=== PATIENT | female | born 1965 ===

== ENCOUNTER 2021-06-04 10:59 | Outpatient (REF) | payer OTHER, SELFPAY ==
--- NOTE | ~2021-06-04 | XR_ITS ---
EXAMINATION: XR CHEST CLINICAL INFORMATION: Malignant neoplasm lower outer quadrant right breast. COMPARISON: None TECHNIQUE: Two views of the chest were obtained. FINDINGS: There is no evidence of acute parenchymal disease, pneumothorax, or pleural effusion. Hazy density is seen overlying the right breast which may be related to unilateral implant. There is some opacity seen overlying the right apex but which may be related to the 1st rib. XR/XR chest 2V IMPRESSION: No acute disease.
[2021-06-04 12:06] LABS: MANUAL DIFF FLAG NO
[2021-06-04 12:14] LABS: Basophils Percent Auto 0.4 % (0-2); Eosinophils Absolute Auto 0.3 X10*3/uL (0.0-0.4); Eosinophils Percent Auto 6.6 % (0-4); Hematocrit 35.3 % (37-47); Hemoglobin 11.4 g/dl (12.0-16.0); Imm Gran Abs Auto 0.01 X10*3/uL (0.00-0.03); Imm Gran Pct Auto 0.2 % (0.0-0.4); Lymphocytes Absolute Auto 2.2 X10*3/uL (1.2-4.9); Lymphocytes Percent Auto 42.2 % (20-40); Mean Corpuscular HGB Conc 32.3 g/dl (31.0-35.0); Mean Corpuscular Volume 89.8 fL (80-98); Mean Platelet Volume 10.9 fL (9.4-12.3); Monocytes Absolute Auto 0.4 X10*3/uL (0.1-1.2); Monocytes Percent Auto 8.4 % (2-11); Neutrophils Absolute Auto 2.2 X10*3/uL (2.0-8.3); Neutrophils Percent Auto 42.2 % (45-73); Platelet Count 232 X10*3/uL (160-400); Red Blood Count 3.93 X10*6/uL (4.20-5.50); Red Cell Distribution Width 13.6 % (11.0-16.0); White Blood Count 5.1 X10*3/uL (4.8-10.8)
[2021-06-04 15:56] LABS: Alanine Aminotransferase 17 U/L (0-31); Albumin Level 3.7 g/dL (3.5-5.0); Alkaline Phosphatase 59 U/L (39-117); Anion Gap 15 (12-20); Aspartate Amino Transferase 30 U/L (5-31); Bilirubin Total 0.7 mg/dL (0.0-1.0); Blood Urea Nitrogen 9 mg/dL (9-16); Calcium 9.1 mg/dL (8.4-10.2); Carbon Dioxide 24 mmol/L (22-29); Chloride 108 mmol/L (96-108); Estimated Glomerular Filt Rate > 60; Glucose Random 82 mg/dL (60-115); Potassium 4.5 mmol/L (3.3-5.1); Sodium 142 mmol/L (135-145); Total Protein 6.6 g/dL (6.5-8.0)
[2021-06-04 16:19] LABS: Vitamin D 25-OH Total 18.9 ng/mL (>30)
== END 2021-06-04 11:00 | disposition home or self-care (01) ==
LOC: HO.LAB 10:59
PROVIDERS: PCP Internal Medicine; Visit Provider Internal Medicine
DX: C50.511 Malignant neoplasm of lower-outer quadrant of right female breast (principal); E55.9 Vitamin D deficiency, unspecified
CPT/HCPCS: 36415; 71046; 80053; 82306; 85025

== ENCOUNTER 2022-03-04 09:19 | Day surgery (SDC) | payer OTHER, SELFPAY ==
[2022-02-27 09:59] VITALS: BMI 24.4
--- NOTE | 2022-03-03 09:03 | HO.ANESPROP2 ---
Documented by User: Radha Galvan NP 03/03/22 09:03 HPI - Anesthesia Eval Consult details Narrative: 56yo F for Colonoscopy [facility] Surgical History Surgical History Hx of mastectomy Social History Social History Patient Tobacco Use Status: Never used Tobacco Use of substances other than those prescribed or required for medical reasons: No Are you DNR?: No Advance Directives: No Advance Directives Information Provided: Yes Meds Allergies Allergy/AdvReac Type Severity Reaction Status Date / Time No Known Allergies Allergy Verified 03/04/22 09:57 Home Medications Medication Instructions Recorded Confirmed Last Taken Type cholecalciferol (vitamin D3) 50 1 cap PO DAILY 03/04/22 03/04/22 Unknown History mcg (2,000 unit) capsule tamoxifen 20 mg tablet 1 tab PO DAILY 03/04/22 03/04/22 Unknown History Exam Exam Date and Time: March 03, 2022 09 Height,Weight and Vital Signs: Height 5 ft Weight 56.699 kg Assessment and Plan Assessment Anesthesia Assessment: Chart Reviewed Documented by User: Jemma Figueroa MD 03/04/22 10:54 [facility] Surgical History Surgical History Hx of mastectomy History of Problems with Anesthesia: No Social History Social History Patient Tobacco Use Status: Never used Tobacco Use of substances other than those prescribed or required for medical reasons: No Are you DNR?: No Advance Directives: No Advance Directives Information Provided: Yes Meds Allergies Allergy/AdvReac Type Severity Reaction Status Date / Time No Known Allergies Allergy Verified 03/04/22 09:57 Home Medications Medication Instructions Recorded Confirmed Last Taken Type cholecalciferol (vitamin D3) 50 1 cap PO DAILY 03/04/22 03/04/22 Unknown History mcg (2,000 unit) capsule tamoxifen 20 mg tablet 1 tab PO DAILY 03/04/22 03/04/22 Unknown History Exam Airway Mallampati Class: I TM Dist: >3cm Neck ROM: Full Loose/Missing/Broken Teeth: No Heart: RRR Lungs: CTA Assessment and Plan Assessment Anesthesia Assessment: Anesthesia Plan Discussed Final Anesthetic Review History of Problems with Anesthesia: No NPO: Yes ASA Class: II Final Preanesthetic Review: Meds/Allgs Chart Reviewed, Consent Obtained/Reviewed and Anes Risks/Benef Reviewed Patient Risk: Low Procedure Risk: Low Anesthetic Plan Anesthetic Plan: MAC:
[2022-03-04 10:00] VITALS: BP 108/59; PULSE 62; RESP 16; TEMP 36.3; O2SAT 100; BMI 23.4
[2022-03-04] MEDS: Lactated Ringers 1,000 ML 100 ML IVCONT (10:08)
[2022-03-04 11:54] VITALS: BP 91/43; PULSE 74; RESP 16; TEMP 36.3; O2SAT 98
--- NOTE | 2022-03-04 11:58 | PM.OP ---
Brief Operative Note Date of Service: 03/04/22 Pre-op diagnosis: Screening Post-op diagnosis: other (Polyp) Procedure: Colonoscopy to the cecum and TI with bx/removal of polyp Surgeon: Gerardo Chisholm Anesthesia: MAC Was an Coding Clerks Supervisor used for this Procedure?: No Estimated blood loss (mL): 2.0 Pathology: other (A. Ascending colon polyp) Condition: stable Disposition: PACU
[2022-03-04 12:09] VITALS: BP 103/56; PULSE 67; RESP 16; O2SAT 100
[2022-03-04 12:24] VITALS: BP 106/58; PULSE 61; RESP 16; TEMP 36.4; O2SAT 98
--- NOTE | 2022-03-04 12:50 | OP_ITS ---
SURGEON: Gerardo Chisholm MD INDICATIONS: The patient presents for evaluation of colorectal cancer screening. Full consent has been obtained from her for this, including risks of bleeding and perforation. PREOPERATIVE DIAGNOSIS: Colorectal cancer screening. POSTOPERATIVE DIAGNOSIS: Colorectal cancer screening, small colon polyp, mild diverticulosis, and small internal hemorrhoids. PROCEDURE PERFORMED: Colonoscopy to cecum and terminal ileum with biopsy and removal of polyp. ESTIMATED BLOOD LOSS: COMPLICATIONS: ANESTHESIA: Medication used, monitored anesthesia care. ASSISTANTS: SPECIMENS: DESCRIPTION OF PROCEDURE: The patient was placed in the left lateral decubitus position the digital rectal exam revealed no abnormalities the Olympus video pediatric colonoscope was entered into the rectum and advanced easily to the cecum. Once in the cecum, I did identify normal-appearing cecal pouch with appendiceal orifice and a normal-appearing ileocecal valve. The terminal ileum was cannulated and appeared normal. The scope was withdrawn back in the colon. The entire cecum and ileocecal valve appeared normal. The scope was then slowly withdrawn assessing all mucosal surfaces carefully. Preparation was excellent. In the proximal ascending colon was a flat approximately 3 or 4 mm polyp, which was biopsied and completely removed with the cold biopsy forceps. I did not visualize any other polyps, colitis, nor angiodysplasia. There was a mild amount of sigmoid diverticulosis. In the rectum, the scope was retroflexed visualizing some small internal hemorrhoids, but no other pathology. The rectal mucosa appeared normal. The scope was straightened and withdrawn from the patient. She tolerated the procedure well and was returned to the recovery area in stable condition. IMPRESSION: 1. Small colon polyp, status post biopsy removal. 2. Mild sigmoid diverticulosis. 3. Small internal hemorrhoids. PLAN: The results of the biopsy will be checked. If this happens to be a tubular adenoma, I would recommend a followup coloscopy in 5 years. If it is only hyperplastic, I would recommend a followup colonoscopy in 10 years. She will otherwise see me on a p.r.n. basis. MD CON Bhandari/PANDA / [phone]
== END 2022-03-04 12:44 | disposition home or self-care (01) ==
PROVIDERS: PCP Internal Medicine; Visit Provider Internal Medicine
PROC: 0DJD8ZZ Inspection of Lower Intestinal Tract, Via Natural or Artificial Opening Endoscopic (ICD-10-PCS; CPT 45378; principal; 2022-03-04 10:30)
DX: Z12.11 Encounter for screening for malignant neoplasm of colon (principal); D12.2 Benign neoplasm of ascending colon; K57.30 Diverticulosis of large intestine without perforation or abscess without bleeding; K64.8 Other hemorrhoids; C50.919 Malignant neoplasm of unspecified site of unspecified female breast; Z90.10 Acquired absence of unspecified breast and nipple; Z79.810 Long term (current) use of selective estrogen receptor modulators (SERMs)
CPT/HCPCS: 45380; 88305

== ENCOUNTER → 2023-04-12 13:25 | Outpatient (BNVA) | payer OTHER, SELFPAY | PROVIDERS: PCP Internal Medicine; Visit Provider Hospitalist ==

== ENCOUNTER 2023-08-16 08:30 | Outpatient (REF) | payer OTHER, SELFPAY ==
--- NOTE | ~2023-08-16 | XR_ITS ---
EXAMINATION: XR CHEST CLINICAL INFORMATION: Abnormal findings on diagnostic imaging COMPARISON: 06/04/2021 TECHNIQUE: 2 views of the chest were obtained. FINDINGS: The lungs are well-inflated. Heart size is normal. This asymmetric right apical pleural thickening and associated opacity. Redemonstration of hazy opacity overlying right breast with asymmetrically smaller right breast shadow, again possibly related to unilateral implant. No pleural effusion. Hazy opacity along the central medial left lung base, possibly representing pneumonia. XR/XR chest 2V IMPRESSION: Hazy opacity along the central medial left lung base, possibly representing pneumonia. Recommend follow-up imaging in 4-6 weeks to confirm resolution and exclude underlying pathology.
[2023-08-16 09:45] LABS: MANUAL DIFF FLAG NO
[2023-08-16 10:04] LABS: Basophils Percent Auto 0.7 % (0-2); Eosinophils Absolute Auto 0.7 X10*3/uL (0.0-0.4); Eosinophils Percent Auto 12.6 % (0-4); Hematocrit 39.9 % (37.0-47.0); Hemoglobin 13.3 g/dl (12.0-16.0); Imm Gran Abs Auto 0.01 X10*3/uL (0.00-0.03); Imm Gran Pct Auto 0.2 % (0.0-0.4); Lymphocytes Absolute Auto 2.3 X10*3/uL (1.2-4.9); Lymphocytes Percent Auto 42.1 % (20-40); Mean Corpuscular HGB Conc 33.3 g/dl (31.0-35.0); Mean Corpuscular Hemoglobin 29.8 pg (27.0-33.0); Mean Corpuscular Volume 89.5 fL (80.0-98.0); Mean Platelet Volume 10.5 fL (9.4-12.3); Monocytes Absolute Auto 0.3 X10*3/uL (0.1-1.2); Monocytes Percent Auto 5.8 % (2-11); Neutrophils Absolute Auto 2.1 x10*3/uL (2.0-8.3); Neutrophils Percent Auto 38.6 % (45-73); Platelet Count 260 X10*3/uL (160-400); Red Blood Count 4.46 X10*6/uL (4.20-5.50); Red Cell Distribution Width 13.3 % (11.0-16.0); White Blood Count 5.5 X10*3/uL (4.8-10.8)
[2023-08-16 10:39] LABS: Erythrocyte Sedimentation Rate 25 MM/HR (0-20)
[2023-08-18 04:38] LABS: Immunoglobulin E 243 kU/L (<OR=114)
== END 2023-08-16 08:31 | disposition home or self-care (01) ==
LOC: HO.LAB 08:30
PROVIDERS: PCP Internal Medicine; Visit Provider Hospitalist
DX: R93.89 Abnormal findings on diagnostic imaging of other specified body structures (principal); J44.9 Chronic obstructive pulmonary disease, unspecified; T78.40XA Allergy, unspecified, initial encounter; J45.41 Moderate persistent asthma with (acute) exacerbation
CPT/HCPCS: 36415; 71046; 82785; 85025; 85652; 86003; 94640

== ENCOUNTER 2023-08-16 08:30 | Outpatient (AMB) | payer OTHER, SELFPAY ==
[2023-08-16 08:35] VITALS: BP 128/60; PULSE 60; O2SAT 98; BMI 25.4
--- NOTE | 2023-08-16 08:35 | A.OFFVIS_ITS ---
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 The patient states that she was in her usual state health until early November when she developed COVID-19. She was not very sick from COVID-19 althou she developed a worsening cough. Hiking in nature. Nonproductive. Typically worse at nighttime. Fax it her sleep and also affect her who is I am affected by the constant coughing. Subsequently she recovers from the COVID but then still continue with cough. Moderate severity. She denies any significant reflux disease. She denies any significant nasal congestion. She does have underlying allergies. There is up also positive family history of significant allergies in the family. She had gotten blood work demonstrating significant eosinophilia in the past. In addition to this the patient did have a chest x-ray sometime in 2020 demonstrating postoperative changes with the right sided breast prosthesis in addition to a hazy opacity in the upper lung area on the right side. She has not had any x-rays since then. Therefore, because of the abnormal blood work will going to go ahead and request additional blood work and also request a repeat chest x-ray to follow up those findings specially with chronic cough. It is likely that she has a cough variant asthma and also I upper airway cough syndrome. I did provide with peak flow ended instructed how to use it to see if she can use the peak flow as a way to monitor her airway resistance and see if she gets any benefit from a rescue inhaler. 08/16/2023 the patient is here for a pulm onary follow-up visit. The patient had presented back in March with symptoms of cough. At that point she was started on inhaler therapy. She has significant asthma history significant wheezing. The patient may be a great candidate for biologics. However she has not had her blood work done as of yet. Now her symptoms have been getting worse. She is having increased cough she has chest tightness and wheezing. Moderate severity. She could not go to work because her symptoms were so significant and this is something that she does not do typically. The patient denies any fevers or chills and denies any sick contacts. We did review her last chest x-ray that she had back in demonstrating some slight opacity. Will have a repeat that x-ray and also the blood work to assess her eosinophilia. The patient will be maximize her respiratory therapy. She does have significant wheezing therefore will give a nebulizer treatment right now as well. 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 But my suspicion is most likely allergic with the change in seasons. If the patient continues to be symptomatic will consider starting biologic therapy. [facility] Medical History (Updated 08/16/23 @ 20:43 by Naren Quiñones MD) Allergies Asthma Chronic cough Surgical History Hx of mastectomy Social History Patient Tobacco Use Status: Never used Tobacco Review of Systems Const Denies fever(s) Eyes Denies blurry vision ENT Denies nasal congestion Card Denies chest pain Resp Reports chest congestion, Reports cough, Denies hemoptysis and Reports wheezing GI Reports dyspepsia Musc Reports no additional complaints Skin/Breast Denies rash Neuro Reports no additional complaints Steve/Lymph Denies lymphadenopathy Aller/Immun Reports wheezing Physical Exam Vital Signs: Last Vital Signs Pulse 60 08/16/23 08:35 BP 128/60 08/16/23 08:35 Pulse Ox 98 08/16/23 08:35 Oxygen Delivery Method Room Air 08/16/23 08:35 BMI result Body Mass Index 25.4 Const General: comfortable HEENT Head: Yes normocephalic Neck Neck: Yes supple Chest Chest palpation & inspection: normal inspection of the chest Resp Effort & Inspection: normal respiratory effort, Actively coughing Quality: actively coughing and prolonged expiratory phase Auscultation: wheezes and diminished lung sounds Cardio Rate: regular rate Rhythm: regular rhythm Heart sounds: S1 normal heart sound present and S2 normal heart sound present GI Palpation (GI): Soft to palpation Skin General skin exam: no rashes or lesions noted Extrem General: Yes no clubbing, cyanosis or edema Office Procedures Nebulizer Treatment Nebulizer Treatment 39921-Eizvewxey/MDI RX initial, or Nebulizer Subsequent Treatment Office Meds ipratropium 0.5 mg-albuterol 3 mg (2.5 mg base)/3 mL nebulization soln Performing Provider: Naren Quiñones MD Performing Location: [facility] Administered by: Sophie Lua LPN on 08/16/23 08:50 Dose Route Admin Location Dispensed Lot Number Expiration Date [facility] [employer]ologist 3 mL inhalation 3 mL [id number] 11/28/24 0325-6580-91 [facility] Assessment & Plan Assessment & Plan (1) Chronic cough: Code(s): R05.3 - Chronic cough (2) Asthma: Comment: Eosinophilic asthma Code(s): J45.909 - Unspecified asthma, uncomplicated Qualifiers: Asthma complication type: with acute exacerbation Asthma persistence: persistent Asthma severity: moderate Qualified Code(s): J45.41 - Moderate persistent asthma with (acute) exacerbation (3) Allergies: Code(s): T78.40XA - Allergy, unspecified, initial encounter Qualifiers: Encounter type: initial encounter Qualified Code(s): T78.40XA - Allergy, unspecified, initial encounter Plan start Symbicort start Prednisone taper start doxycycline Needs to have bloodwork/allergy testing needs to have her CXR TANESHA as needed Tessalon pearls as needed Assess for Biologic therapy F/U 6-8 weeks Orders: Orders AMB Nebulizer Treatment Today J45.909 - Unspecified asthma, uncomplicated Medications: New prednisone PO daily; Take 2 tabs daily x 5 days, then 1 tablet daily x 5 days 10 days 15 tabs 0RF doxycycline hyclate 100 mg PO BID 10 days 20 caps 0RF budesonide-formoterol 160-4.5 mcg/actuation (Symbicort) 2 puffs inhalation BID 30 days 10.2 grams 11RF J44.9 - Chronic obstructive pulmonary disease, unspecified Coding Level of Care Code Est Pt Level 4 (00232) Diagnoses Chronic cough R05.3 Moderate persistent asthma with acute exacerbation J45.41 Asthma complication type: with acute exacerbation Asthma persistence: persistent Asthma severity: moderate Allergy, initial encounter T78.40XA Encounter type: initial encounter CPT Codes Nebulizer Treatment - Nebulizer Treatment, initial or subsequent: 70645- Nebulizer/MDI RX initial, or Nebulizer Subsequent Treatment ([id number]) Time Spent (min) 18
== END 2023-08-16 09:10 | disposition home or self-care (01) ==
PROVIDERS: PCP Internal Medicine; Visit Provider Hospitalist
DX: J45.909 Unspecified asthma, uncomplicated (principal)
CPT/HCPCS: 99214

== ENCOUNTER 2023-09-27 08:48 | Outpatient (AMB) | payer OTHER, SELFPAY ==
[2023-09-27 08:51] VITALS: BP 102/62; PULSE 70; O2SAT 98; BMI 25.8
--- NOTE | 2023-09-27 08:51 | MHC.OFFVIS ---
Intake Vital Signs 09/27/23 08:51 Height 5 ft Weight 132 lb 4.438 oz BMI 25.8 BP 102/62 Blood Pressure Location Rt brachial Position Sitting Pulse 70 Pulse Source Doppler Pulse Oximetry (%) 98 Oxygen Delivery Method Room Air Intake Visit Reasons: Pneumonia Allergies No Known Allergies Allergy (Verified 09/27/23 08:56) HPI HPI Comments History of Present Illness Details The patient is a 58 year woman with a history of breast cancer more than 10 years ago presenting with a chronic cough. The patient states that she was in her usual state health until early November when she developed COVID-19. She was not very sick from COVID-19 althou she developed a worsening cough. Hiking in nature. Nonproductive. Typically worse at nighttime. Fax it her sleep and also affect her who is I am affected by the constant coughing. Subsequently she recovers from the COVID but then still continue with cough. Moderate severity. She denies any significant reflux disease. She denies any significant nasal congestion. She does have underlying allergies. There is up also positive family history of significant allergies in the family. She had gotten blood work demonstrating significant eosinophilia in the past. In addition to this the patient did have a chest x-ray sometime in 2020 demonstrating postoperative changes with the right sided breast prosthesis in addition to a hazy opacity in the upper lung area on the right side. She has not had any x-rays since then. Therefore, because of the abnormal blood work will going to go ahead and request additional blood work and also request a repeat chest x-ray to follow up those findings specially with chronic cough. It is likely that she has a cough variant asthma and also I upper airway cough syndrome. I did provide with peak flow ended instructed how to use it to see if she can use the peak flow as a way to monitor her airway resistance and see if she gets any benefit from a rescue inhaler. 08/16/2023 the patient is here for a pulmonary follow-up visit. The patient had presented back in March with symptoms of cough. At that point she was started on inhaler therapy. She has significant asthma history significant wheezing. The patient may be a great candidate for biologics. However she has not had her blood work done as of yet. Now her symptoms have been getting worse. She is having increased cough she has chest tightness and wheezing. Moderate severity. She could not go to work because her symptoms were so significant and this is something that she does not do typically. The patient denies any fevers or chills and denies any sick contacts. We did review her last chest x-ray that she had back in demonstrating some slight opacity. Will have a repeat that x-ray and also the blood work to assess her eosinophilia. The patient will be maximize her respiratory therapy. She does have significant wheezing therefore will give a nebulizer treatment right now as well. She will get the blood work in the x-ray and then will picker / packer some prednisone and will start a course of antibiotics she has seen cases infectious process. But my suspicion is most likely allergic with the change in seasons. If the patient continues to be symptomatic will consider starting biologic therapy. 09/27/2023 the patient is here for a pulmonary follow-up visit. The patient is feeling a lot better. She is having no symptoms at this time. She did take the prednisone for few days and also started the Symbicort. She was able to wean off. Now she can uses Symbicort as needed. We did review her chest x-ray demonstrates some hazy opacities suggesting some degree of pneumonitis. Although when I looked at it was not very impressed. In addition to that the patient did have blood work including allergy testing demonstrating significant allergies to mold. The patient does have a exposure to mold in the basement and also potentially in work. Areas. The patient will try to minimize exposure. They are running at the humidifier which would be helpful as well. The patient is a candidate for biologic therapies including the eosinophil count and IgE levels in her allergies. Although at this point she is doing better trying to avoid her allergens. And she is wearing a mask. All these things helpful. Therefore, she will continue using the Symbicort and will hold off on any biologic therapies at this time. Will follow up in sometimes 6-8 months. The patient has any issues prior to that she will call the office for an earlier assessment. [facility] Medical History (Updated 09/27/23 @ 20:21 by Naren Quiñones MD) Pneumonia Allergies Asthma Chronic cough Surgical History Hx of mastectomy Social History Patient Tobacco Use Status: Never used Tobacco Review of Systems Const Denies fever(s) Eyes Denies blurry vision ENT Denies nasal congestion Card Denies chest pain Resp Denies chest congestion, Reports cough, Denies hemoptysis and Denies wheezing GI Reports dyspepsia Musc Reports no additional complaints Skin/Breast Denies rash Neuro Reports no additional complaints Steve/Lymph Denies lymphadenopathy Aller/Immun Denies wheezing Physical Exam Vital Signs: Last Vital Signs Pulse 70 09/27/23 08:51 BP 102/62 09/27/23 08:51 Pulse Ox 98 09/27/23 08:51 Oxygen Delivery Method Room Air 09/27/23 08:51 BMI result Body Mass Index 25.8 Const General: comfortable HEENT Head: Yes normocephalic Neck Neck: Yes supple Chest Chest palpation & inspection: normal inspection of the chest Resp Effort & Inspection: normal respiratory effort and no cough Auscultation: no wheezes Cardio Rate: regular rate Rhythm: regular rhythm Heart sounds: S1 normal heart sound present and S2 normal heart sound present GI Palpation (GI): Soft to palpation Skin General skin exam: no rashes or lesions noted Extrem General: Yes no clubbing, cyanosis or edema Assessment & Plan Assessment & Plan (1) Chronic cough: Code(s): R05.3 - Chronic cough (2) Asthma: Comment: Eosinophilic asthma Code(s): J45.909 - Unspecified asthma, uncomplicated Qualifiers: Asthma complication type: uncomplicated Asthma persistence: persistent Asthma severity: moderate Qualified Code(s): J45.40 - Moderate persistent asthma, uncomplicated (3) Allergies: Code(s): T78.40XA - Allergy, unspecified, initial encounter Qualifiers: Encounter type: initial encounter Qualified Code(s): T78.40XA - Allergy, unspecified, initial encounter Plan continue Symbicort TANESHA as needed Mold avoidence Tessalon pearls as needed Assess for Biologic therapy, holding off at this time F/U 6-8 months Coding Level of Care Code Est Pt Level 4 (27384) Diagnoses Chronic cough R05.3 Moderate persistent asthma without complication J45.40 Asthma complication type: uncomplicated Asthma persistence: persistent Asthma severity: moderate Allergy, initial encounter T78.40XA Encounter type: initial encounter Time Spent (min) 17
== END 2023-09-27 09:12 | disposition home or self-care (01) ==
PROVIDERS: PCP Internal Medicine; Visit Provider Hospitalist
DX: R05.3 Chronic cough (principal); J45.40 Moderate persistent asthma, uncomplicated; T78.40XA Allergy, unspecified, initial encounter
CPT/HCPCS: 99214

== ENCOUNTER → 2023-09-27 08:48 | Outpatient (BNVA) | payer OTHER, SELFPAY | PROVIDERS: PCP Internal Medicine; Visit Provider Hospitalist ==

== ENCOUNTER 2023-12-06 13:54 | Outpatient (AMB) | payer OTHER, SELFPAY ==
--- NOTE | 2023-12-06 14:03 | A.OFFVIS_ITS ---
Intake Vital Signs 12/06/23 14:04 Height 5 ft Weight 133 lb 6.075 oz BMI 26.0 BP 118/62 Blood Pressure Location Lt brachial Position Sitting Pulse 71 Pulse Source Doppler Pulse Oximetry (%) 99 Oxygen Delivery Method Room Air Intake Visit Reasons: constant cough/congestion Allergies No Known Allergies Allergy (Verified 12/06/23 14:09) HPI HPI Comments History of Present Illness Details The patient is a 58 year woman with a history of breast cancer more than 10 years ago presenting with a chronic cough. The patient states that she was in her usual state health until early November when she developed COVID-19. She was not very sick from COVID-19 althou she developed a worsening cough. Hiking in nature. Nonproductive. Typically worse at nighttime. Fax it her sleep and also affect her who is I am affected by the constant coughing. Subsequently she recovers from the COVID but then still continue with cough. Moderate severity. She denies any significant reflux disease. She denies any significant nasal congestion. She does have underlying allergies. There is up also positive family history of significant allergies in the family. She had gotten blood work demonstrating significant eosinophilia in the past. In addition to this the patient did have a chest x-ray sometime in 2020 demonstrating postoperative changes with the right sided breast prosthesis in addition to a hazy opacity in the upper lung area on the right side. She has not had any x-rays since then. Therefore, because of the abnormal blood work will going to go ahead and request additional blood work and also request a re peat chest x-ray to follow up those findings specially with chronic cough. It is likely that she has a cough variant asthma and also I upper airway cough syndrome. I did provide with peak flow ended instructed how to use it to see if she can use the peak flow as a way to monitor her airway resistance and see if she gets any benefit from a rescue inhaler. 08/16/2023 the patient is here for a pulm onary follow-up visit. The patient had presented back in March with symptoms of cough. At that point she was started on inhaler therapy. She has significant asthma history significant wheezing. The patient may be a great candidate for biologics. However she has not had her blood work done as of yet. Now her symptoms have been getting worse. She is having increased cough she has chest tightness and wheezing. Moderate severity. She could not go to work because her symptoms were so significant and this is something that she does not do typically. The patient denies any fevers or chills and denies any sick contacts. We did review her last chest x-ray that she had back in demonstrating some slight opacity. Will have a repeat that x-ray and also the blood work to assess her eosinophilia. The patient will be maximize her respiratory therapy. She does have significant wheezing therefore will give a nebulizer treatment right now as well. She will get the blood work in the x-ray and then will picker / packer some prednisone and will start a course of antibiotics she has seen cases infectious process. But my suspicion is most likely allergic with the change in seasons. If the patient continues to be symptomatic will consider starting biologic therapy. 09/27/2023 the patient is here for a pul monary follow-up visit. The patient is feeling a lot better. She is having no symptoms at this time. She did take the prednisone for few days and also started the Symbicort. She was able to wean off. Now she can uses Symbicort as needed. We did review her chest x-ray demonstrates some hazy opacities suggesting some degree of pneumonitis. Although when I looked at it was not very impressed. In addition to that the patient did have blood work including allergy testing demonstrating significant allergies to mold. The patient does have a exposure to mold in the basement and also potentially in work. Areas. The patient will try to minimize exposure. They are running at the humidifier which would be helpful as well. The patient is a candidate for biologic therapies including the eosinophil count and IgE levels in her allergies. Although at this point she is doing better trying to avoid her allergens. And she is wearing a mask. All these things helpful. Therefore, she will continue using the Symbicort and will hold off on any biologic therapies at this time. Will follow up in sometimes 6-8 months. The patient has any issues prior to that she will call the office for an earlier assessment. 12/06/2023 the patient is here for sick visit. Apparently she has been sick for more than 2 weeks. She has had significant chest tightness and cough. She has had difficulty sleeping because of significant coughing. She has been using her inhaler with partial response. She did try to call the office but she could not get an appointment. Not sure if she tried going elsewhere. In the meantime she continued to get worse. Today she has significant chest tightness and cough. On examination she has significant wheezing. We did provide her to DuoNeb treatments to see if she responded and she did do a lot better. Therefore we did provide her with a nebulizer for her to take home with her. In the meantime will treat her home with prednisone and doxycycline for likely a postviral bacterial infection. Sounds like he probably had RSV or a viral syndrome the likely precipitated her asthma symptoms. She does have significant sick contacts at work. The patient will start taking the therapy if she has no better she will call the office for further management. [facility] Medical History (Updated 12/06/23 @ 20:20 by Naren Quiñones MD) Pneumonia Allergies Asthma Chronic cough Surgical History Hx of mastectomy Social History Patient Tobacco Use Status: Never used Tobacco Review of Systems Const Reports difficulty sleeping and Denies fever(s) Eyes Denies blurry vision ENT Denies nasal congestion Card Denies chest pain and Reports dyspnea on exertion Resp Reports chest congestion, Reports cough, Denies hemoptysis, Reports dyspnea on exertion and Reports wheezing GI Reports dyspepsia Musc Reports no additional complaints Skin/Breast Denies rash Neuro Reports no additional complaints Steve/Lymph Denies lymphadenopathy Aller/Immun Reports wheezing Physical Exam Vital Signs: Last Vital Signs Pulse 71 12/06/23 14:04 BP 118/62 12/06/23 14:04 Pulse Ox 99 12/06/23 14:04 Oxygen Delivery Method Room Air 12/06/23 14:04 BMI result Body Mass Index 26.0 Const General: comfortable HEENT Head: Yes normocephalic Neck Neck: Yes supple Chest Chest palpation & inspection: normal inspection of the chest Resp Effort & Inspection: normal respiratory effort and Actively coughing Auscultation: rhonchi, wheezes and diminished lung sounds Cardio Rate: regular rate Rhythm: regular rhythm Heart sounds: S1 normal heart sound present and S2 normal heart sound present GI Palpation (GI): Soft to palpation Skin General skin exam: no rashes or lesions noted Extrem General: Yes no clubbing, cyanosis or edema Office Procedures Nebulizer Treatment Nebulizer Treatment [id number]/MDI RX initial, or Nebulizer Subsequent Treatment Office Meds ipratropium 0.5 mg-albuterol 3 mg (2.5 mg base)/3 mL nebulization trudin Performing Provider: Naren Quiñones MD Performing Location: [facility] [place] [facility] Administered by: Sophie Lua LPN on 12/06/23 14:38 Dose Route Admin Location Dispensed Lot Number Expiration Date NDC [employer] 3 mL inhalation 3 mL [id number] 05/28/25 9815-7576-10 [facility] Assessment & Plan Assessment & Plan (1) Asthma: Comment: Eosinophilic asthma Code(s): J45.909 - Unspecified asthma, uncomplicated Qualifiers: Asthma severity: moderate Asthma persistence: persistent Asthma complication type: with acute exacerbation Qualified Code(s): J45.41 - Moderate persistent asthma with (acute) exacerbation (2) Chronic cough: Code(s): R05.3 - Chronic cough (3) Allergies: Code(s): T78.40XA - Allergy, unspecified, initial encounter Qualifiers: Encounter type: initial encounter Qualified Code(s): T78.40XA - Allergy, unspecified, initial encounter (4) Bronchitis: Code(s): J40 - Bronchitis, not specified as acute or chronic Plan Nebulizer with duoneb x 2 needs a nebulizer, one provided in the office start prednisone taper start doxycycline continue Symbicort TANESHA as needed Mold avoidence Tessalon pearls as needed Assess for Biologic therapy, holding off at this time F/U 2-3 months Orders: Orders AMB Nebulizer Treatment Today J45.909 - Unspecified asthma, uncomplicated Medications: New albuterol sulfate 2.5 mg (3 mL) inhalation Q6H 30 days PRN 180 mL 11RF shortness of breath or wheezing prednisone PO daily; Take 2 tabs daily x 5 days, then 1 tablet daily x 5 days 10 days 15 tabs 0RF doxycycline hyclate 100 mg PO BID 10 days 20 caps 0RF Coding Level of Care Code Est Pt Level 4 (74009) Diagnoses Moderate persistent asthma with acute exacerbation J45.41 Asthma severity: moderate Asthma persistence: persistent Asthma complication type: with acute exacerbation Chronic cough R05.3 Allergy, initial encounter T78.40XA Encounter type: initial encounter Bronchitis J40 CPT Codes Nebulizer Treatment - Nebulizer Treatment, initial or subsequent: 75378- Nebulizer/MDI RX initial, or Nebulizer Subsequent Treatment ([id number]) Time Spent (min) 19
[2023-12-06 14:04] VITALS: BP 118/62; PULSE 71; O2SAT 99; BMI 26.0
== END 2023-12-06 14:37 | disposition home or self-care (01) ==
PROVIDERS: PCP Internal Medicine; Visit Provider Hospitalist
DX: J45.41 Moderate persistent asthma with (acute) exacerbation (principal); R05.3 Chronic cough; T78.40XA Allergy, unspecified, initial encounter; J40 Bronchitis, not specified as acute or chronic
CPT/HCPCS: 99214

== ENCOUNTER → 2023-12-06 13:54 | Outpatient (BNVA) | payer OTHER, SELFPAY | PROVIDERS: PCP Internal Medicine; Visit Provider Hospitalist | DX: J45.41 Moderate persistent asthma with (acute) exacerbation (principal); R05.3 Chronic cough; T78.40XA Allergy, unspecified, initial encounter; J40 Bronchitis, not specified as acute or chronic | CPT/HCPCS: 94640 ==

== ENCOUNTER 2024-01-10 12:24 | Outpatient (REF) | payer OTHER, SELFPAY ==
--- NOTE | ~2024-01-10 | XR_ITS ---
EXAMINATION: XR HAND, LEFT CLINICAL INFORMATION: Joint stiffness of the left hand COMPARISON: None available. TECHNIQUE: PA, lateral, and oblique views of the left hand. FINDINGS: The bones and soft tissues are normal. No fracture. Alignment is anatomic. There is mild degenerative change of the DIP joint of the middle finger. Small ossific or calcific densities adjacent to the ulnar styloid may be related to remote trauma. XR/XR hand LT min 3V IMPRESSION: 1. No acute bony abnormality. 2. Mild degenerative change of the DIP joint of the middle finger.
== END 2024-01-10 12:25 | disposition home or self-care (01) ==
LOC: HO.HMGCX 12:24
PROVIDERS: PCP Internal Medicine; Visit Provider Internal Medicine
DX: M25.642 Stiffness of left hand, not elsewhere classified (principal)
CPT/HCPCS: 73130

== ENCOUNTER 2024-02-02 09:22 | Outpatient (AMB) | payer OTHER, SELFPAY ==
[2024-02-02 09:50] VITALS: BP 112/72; PULSE 60; TEMP 36.2; O2SAT 98; BMI 25.8
--- NOTE | 2024-02-02 09:50 | AM.OFFWIN_ITS ---
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 Pt fell at work 01/06 and landed on left hand to stop the fall. Pt works at [employer]. She did report the fall to . [facility] Medical History (Updated 12/06/23 @ 20:20 by Naren Quiñones MD) Pneumonia Allergies Asthma Chronic cough Surgical History Hx of mastectomy Social History Patient Tobacco Use Status: Never used Tobacco Review of Systems Const All systems reviewed & are unremarkable except as noted in HPI and below Physical Exam Vital Signs: Last Vital Signs Temp 97.1 F 02/02/24 09:50 Pulse 60 02/02/24 09:50 BP 112/72 02/02/24 09:50 Pulse Ox 98 02/02/24 09:50 Oxygen Delivery Method Room Air 02/02/24 09:50 BMI result Body Mass Index 25.8 Const General: comfortable and no acute distress Orientation/consciousness: patient oriented x3 Neuro General: patient oriented x3 Extrem Right upper extremity: normal to inspection Left upper extremity: full ROM and hand Details: normal to inspection, normal capillary refill, neuromotor exam normal, neurosensory exam normal, tenderness, swelling and no swelling Psych Speech and movement: Normal speech and movement present Assessment & Plan Assessment & Plan (1) Left hand pain: Code(s): M79.642 - Pain in left hand Plan: -Ice hot - Compression bandage - Xr to r/o Fx - Acetaminophen for pain relief - Strain vs Sprain Orders: Orders XR hand LT 2V Today M79.642 - Pain in left hand Medications: New acetaminophen 1,000 mg (2 x 500 mg) PO Q6H PRN 30 caps 0RF pain M79.642 - Pain in left hand Coding Level of Care Code New Pt Level 3 (34973) Diagnoses Left hand pain M79.642 Time Spent (min) 15
== END 2024-02-02 13:14 | disposition home or self-care (01) ==
PROVIDERS: PCP Internal Medicine; Visit Provider Nurse Practitioner Family
DX: M79.642 Pain in left hand (principal)
CPT/HCPCS: 99203

== ENCOUNTER 2024-02-02 10:24 | Outpatient (REF) | payer OTHER, SELFPAY ==
--- NOTE | ~2024-02-02 | XR_ITS ---
EXAMINATION: XR HAND, LEFT CLINICAL INFORMATION: Pain COMPARISON: None available. TECHNIQUE: PA, lateral, and oblique views of the left hand. FINDINGS: Fracture of the middle phalanx fourth digit. This is occurring approximately the level of the PIP joint dorsally. Mild distraction of the fracture fragment. XR/XR hand LT 2V IMPRESSION: Fracture middle phalanx fourth digit the level of the PIP joint dorsally
== END 2024-02-02 10:25 | disposition home or self-care (01) ==
LOC: HO.HMGCX 10:24
PROVIDERS: Visit Provider Nurse Practitioner Family
DX: M79.642 Pain in left hand (principal)
CPT/HCPCS: 73120

== ENCOUNTER 2024-02-09 14:24 | Outpatient (AMB) | payer OTHER, SELFPAY ==
--- NOTE | 2024-02-09 14:36 | A.OFFVIS_ITS ---
Intake Vital Signs 02/09/24 14:43 Height 5 ft Weight 132 lb BMI 25.8 Handedness Right Intake Visit Reasons: FC - left MF & RF fx, DOI 01/06/24 Intake Note: Susy is a right hand dominant female who presents today for a evaluation of her left MF and RF fx, DOI 01/06/24. Patient states that she tripped over the rug at work. Currently, she is having swelling and dull pain in her left MF and RF. She is not able to make a fist. Patient was given a brace at the ED, however it makes her itchy. Meenakshi numbness, however she has off an on tingling. Allergies No Known Allergies Allergy (Verified 02/09/24 14:41) HPI FC - left MF & RF fx, DOI 01/06/24 HPI Details 58-year-old right hand dominant female sergo nunez presents to the office today for an injury she sustained to her left middle and ring finger while at work on 01/06/24. She states she was walking at work when her foot got caught on the corner of the rug and she fell. She was seen in the E, xrays obtained which demonstrated an avulsion fracture of the ring finger at the level of the PIP. She currently states she has swelling and dull pain in her fingers which makes her unable to make a fist. She denies any numbness however she does c/o intermittent tingling in her finger. She was given a brace in the ED, but dc the use of this as it was irritating her skin. She has been working since the DOI. [facility] Medical History (Updated 02/09/24 @ 22:45 by Maite Thornton PA-C) Pneumonia Allergies Asthma Chronic cough Surgical History Hx of mastectomy Social History (Updated 02/09/24 @ 14:42 by Eddie Quiñones) Alcohol intake: current Patient Tobacco Use Status: Never used Tobacco Current occupational status: employed Current occupation: [employer]/ right hand dominant Review of Systems Const All systems reviewed & are unremarkable except as noted in HPI and below Physical Exam Vital Signs: BMI result Body Mass Index 25.8 Const General: cooperative and no acute distress Orientation/consciousness: patient oriented x3 Resp Effort & Inspection: normal respiratory effort and able to speak in complete sentences Cardio Peripheral pulses: Peripheral pulses 2+ throughout Neuro General: patient oriented x3 Extrem Other: Left middle and ring finger: Normal to inspection. She has mild swelling at the PIP joint of both fingers. No pain with valgus and varus stress testing. She can fully extend and flex the finger with mild discomfort. NVI. Office Procedures Fracture Care Fracture Billing Code: Fracture Billing Code Results Reviewed Results Reviewed: xrays of the left hand obtained on 02/02/24 Fracture middle phalanx fourth digit the level of the PIP joint dorsally Assessment & Plan Assessment & Plan (1) Fracture of phalanx of ring finger: Code(s): S62.608A - Fracture of unspecified phalanx of other finger, initial encounter for closed fracture Plan At this time, her injury is approximately 6 weeks out therefore there has been healing over the avulsion fragment and she has no functional limitations other than residual swelling. I encouraged her to work on ROM of the left hand to improve her function and decrease her pain. If she develops any worsening symptoms, she will contact the office, otherwise follow-up as needed. She will continue working without restrictions. Patient Instructions: Scribed for Maite Thornton PA-C, by Sunil Mcleod electromedical equipment repairer, on 02/09/2024 at 2:30 PM EST. I, Maite Thornton PA-C, have personally reviewed and agree with the information entered by the scribe. Coding Level of Care Code New Pt Level 3 (78856) Diagnoses Fracture of phalanx of ring finger S62.608A CPT Codes Fracture Care - Fracture Billing Code: Fracture Billing Code ([id number])
[2024-02-09 14:43] VITALS: BMI 25.8
== END 2024-02-09 15:06 | disposition home or self-care (01) ==
PROVIDERS: PCP Internal Medicine; Visit Provider Physician Assistant
DX: S62.625A Displaced fracture of middle phalanx of left ring finger, initial encounter for closed fracture (principal); Z04.2 Encounter for examination and observation following work accident
CPT/HCPCS: 99203

== ENCOUNTER → 2024-02-09 14:24 | Outpatient (BNVA) | payer OTHER, SELFPAY | PROVIDERS: PCP Internal Medicine; Visit Provider Physician Assistant ==

== ENCOUNTER 2024-04-19 09:17 | Outpatient (AMB) | payer OTHER, SELFPAY ==
--- NOTE | 2024-04-19 09:27 | A.OFFVIS_ITS ---
Vital Signs 04/19/24 09:29 Height 5 ft Weight 130 lb BMI 25.4 Pulse 61 Pulse Source Pulse Oximeter Pulse Oximetry (%) 100 Oxygen Delivery Method Room Air Intake Visit Reasons: cough Residential Nurse Required: No Allergies No Known Allergies Allergy (Verified 04/19/24 09:30) HPI Comments Details: The patient is a 58 year woman with a history of breast cancer more than 10 years ago presenting with a chronic cough. The patient states that she was in her usual state health until early November when she developed COVID-19. She was not very sick from COVID-19 althou she developed a worsening cough. Hiking in nature. Nonproductive. Typically worse at nighttime. Fax it her sleep and also affect her who is I am affected by the constant coughing. Subsequently she recovers from the COVID but then still continue with cough. Moderate severity. She denies any significant reflux disease. She denies any significant nasal congestion. She does have underlying allergies. There is up also positive family history of significant allergies in the family. She had gotten blood work demonstrating significant eosinophilia in the past. In addition to this the patient did have a chest x-ray sometime in 2020 demonstrating postoperative changes with the right sided breast prosthesis in addition to a hazy opacity in the upper lung area on the right side. She has not had any x-rays since then. Therefore, because of the abnormal blood work will going to go ahead and request additional blood work and also request a repeat chest x-ray to follow up those findings specially with chronic cough. It is likely that she has a cough variant asthma and also I upper airway cough syndrome. I did provide with peak flow ended instructed how to use it to see if she can use the peak flow as a way to monitor her airway resistance and see if she gets any benefit from a rescue inhaler. 08/16/2023 the patient is here for a pulmonary follow-up visit. The patient had presented back in March with symptoms of cough. At that point she was started on inhaler therapy. She has significant asthma history significant wheezing. The patient may be a great candidate for biologics. However she has not had her blood work done as of yet. Now her symptoms have been getting worse. She is having increased cough she has chest tightness and wheezing. Moderate severity. She could not go to work because her symptoms were so significant and this is something that she does not do typically. The patient denies any fevers or chills and denies any sick contacts. We did review her last chest x-ray that she had back in demonstrating some slight opacity. Will have a repeat that x-ray and also the blood work to assess her eosinophilia. The patient will be maximize her respiratory therapy. She does have significant wheezing therefore will give a nebulizer treatment right now as well. 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 But my suspicion is most likely allergic with the change in seasons. If the patient continues to be symptomatic will consider starting biologic therapy. 09/27/2023 the patient is here for a pulmonary follow-up visit. The patient is feeling a lot better. She is having no symptoms at this time. She did take the prednisone for few days and also started the Symbicort. She was able to wean off. Now she can uses Symbicort as needed. We did review her chest x-ray demonstrates some hazy opacities suggesting some degree of pneumonitis. Although when I looked at it was not very impressed. In addition to that the patient did have blood work including allergy testing demonstrating significant allergies to mold. The patient does have a exposure to mold in the basement and also potentially in work. Areas. The patient will try to minimize exposure. They are running at the humidifier which would be helpful as well. The patient is a candidate for biologic therapies including the eosinophil count and IgE levels in her allergies. Although at this point she is doing better trying to avoid her allergens. And she is wearing a mask. All these things helpful. Therefore, she will continue using the Symbicort and will hold off on any biologic therapies at this time. Will follow up in sometimes 6-8 months. The patient has any issues prior to that she will call the office for an earlier assessment. 12/06/2023 the patient is here for sick visit. Apparently she has been sick for more than 2 weeks. She has had significant chest tightness and cough. She has had difficulty sleeping because of significant coughing. She has been using her inhaler with partial response. She did try to call the office but she could not get an appointment. Not sure if she tried going elsewhere. In the meantime she continued to get worse. Today she has significant chest tightness and cough. On examination she has significant wheezing. We did provide her to DuoNeb treatments to see if she responded and she did do a lot better. Therefore we did provide her with a nebulizer for her to take home with her. In the meantime will treat her home with prednisone and doxycycline for likely a postviral bacterial infection. Sounds like he probably had RSV or a viral syndrome the likely precipitated her asthma symptoms. She does have significant sick contacts at work. The patient will start taking the therapy if she has no better she will call the office for further management. 04/19/2024 the patient is here for a pulmonary follow-up visit. She has had a hard time with the breathing. She is coughing more and has more chest tightness and wheezing. She has been using her nebulizer. The patient did just complete a course of prednisone antibiotics. We did review her blood work. She does have significant eosinophilia. She also has an elevated IgE consistent with eosinophilic asthma. The patient will require additional prednisone since she is having significant wheezing and coughing. Although with her significant eosinophilia she will benefit from Fasenra. Therefore, will start the process of starting her Fasenra. She will need another course of prednisone in the meantime. 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 Review of Systems Const Reports difficulty sleeping and Denies fever(s) Eyes Denies blurry vision ENT Denies nasal congestion Card Denies chest pain and Reports dyspnea on exertion Resp Reports chest congestion, Reports cough, Denies hemoptysis, Reports dyspnea on exertion and Reports wheezing GI Reports dyspepsia Musc Reports no additional complaints Skin/Breast Denies rash Neuro Reports no additional complaints Steve/Lymph Denies lymphadenopathy Aller/Immun Reports wheezing Physical Exam Vital Signs: Last Vital Signs Pulse 61 04/19/24 09:29 Pulse Ox 100 04/19/24 09:29 Oxygen Delivery Method Room Air 04/19/24 09:29 BMI result Body Mass Index 25.4 Const General: comfortable HEENT Head: Yes normocephalic Neck Neck: Yes supple Chest Chest palpation & inspection: normal inspection of the chest Resp Effort & Inspection: normal respiratory effort and Actively coughing Auscultation: rhonchi, wheezes and diminished lung sounds Cardio Rate: regular rate Rhythm: regular rhythm Heart sounds: S1 normal heart sound present and S2 normal heart sound present GI Palpation (GI): Soft to palpation Skin General skin exam: no rashes or lesions noted Extrem General: Yes no clubbing, cyanosis or edema Assessment & Plan Assessment & Plan (1) Asthma: Comment: Eosinophilic asthma Code(s): J45.909 - Unspecified asthma, uncomplicated Category: Medical Qualifiers: Asthma severity: severe Asthma persistence: persistent Asthma complication type: with acute exacerbation Qualified Code(s): J45.51 - Severe persistent asthma with (acute) exacerbation (2) Chronic cough: Code(s): R05.3 - Chronic cough Category: Medical (3) Allergies: Code(s): T78.40XA - Allergy, unspecified, initial encounter Category: Medical Qualifiers: Encounter type: initial encounter Qualified Code(s): T78.40XA - Allergy, unspecified, initial encounter (4) Bronchitis: Code(s): J40 - Bronchitis, not specified as acute or chronic Category: Medical Plan start prednisone taper start Azithromycin MWF Start Fasenra for severe Eosiniphilic asthma continue Symbicort TANESHA as needed Mold avoidence Tessalon pearls as needed F/U 2-3 months Medications: New prednisone orally daily; 4 tabs daily x 10 days, then 3 tab daily x 10 days, then 2 tabs daily x 10 days, then 1 tab daily x 10 days 100 tabs 1RF 40 days azithromycin Take 1 tablet on Wednesday/Wednesday/Wednesday 250 mg PO 3XW 12 tabs 2RF 28 days K21.9 - Gastro-esophageal reflux disease without esophagitis Coding Level of Care Code Est Pt Level 4 (21951) Diagnoses Severe persistent asthma with acute exacerbation J45.51 Asthma severity: severe Asthma persistence: persistent Asthma complication type: with acute exacerbation Chronic cough R05.3 Allergy, initial encounter T78.40XA Encounter type: initial encounter Bronchitis J40 Time Spent (min) 17
[2024-04-19 09:29] VITALS: PULSE 61; O2SAT 100; BMI 25.4
== END 2024-04-19 10:01 | disposition home or self-care (01) ==
PROVIDERS: PCP Internal Medicine; Visit Provider Hospitalist
DX: J45.51 Severe persistent asthma with (acute) exacerbation (principal); R05.3 Chronic cough; T78.40XA Allergy, unspecified, initial encounter; J40 Bronchitis, not specified as acute or chronic
CPT/HCPCS: 99214

== ENCOUNTER → 2024-04-19 09:17 | Outpatient (BNVA) | payer OTHER, SELFPAY | PROVIDERS: PCP Internal Medicine; Visit Provider Hospitalist ==

== ENCOUNTER 2024-06-21 09:06 | Outpatient (AMB) | payer OTHER, SELFPAY ==
[2024-06-21 09:09] VITALS: PULSE 71; O2SAT 98; BMI 25.4
--- NOTE | 2024-06-21 09:09 | MHC.OFFVIS ---
Vital Signs 06/21/24 09:09 Height 5 ft Weight 130 lb BMI 25.4 Pulse 71 Pulse Source Pulse Oximeter Pulse Oximetry (%) 98 Oxygen Delivery Method Room Air Intake Visit Reasons: Cough Medicaid Billing Specialist Required: No Allergies No Known Allergies Allergy (Verified 06/21/24 09:11) HPI Comments Details: The patient is a 58 year woman with a history of breast cancer more than 10 years ago presenting with a chronic cough. The patient states that she was in her usual state health until early November when she developed COVID-19. She was not very sick from COVID-19 althou she developed a worsening cough. Hiking in nature. Nonproductive. Typically worse at nighttime. Fax it her sleep and also affect her who is I am affected by the constant coughing. Subsequently she recovers from the COVID but then still continue with cough. Moderate severity. She denies any significant reflux disease. She denies any significant nasal congestion. She does have underlying allergies. There is up also positive family history of significant allergies in the family. She had gotten blood work demonstrating significant eosinophilia in the past. In addition to this the patient did have a chest x-ray sometime in 2020 demonstrating postoperative changes with the right sided breast prosthesis in addition to a hazy opacity in the upper lung area on the right side. She has not had any x-rays since then. Therefore, because of the abnormal blood work will going to go ahead and request additional blood work and also request a repeat chest x-ray to follow up those findings specially with chronic cough. It is likely that she has a cough variant asthma and also I upper airway cough syndrome. I did provide with peak flow ended instructed how to use it to see if she can use the peak flow as a way to monitor her airway resistance and see if she gets any benefit from a rescue inhaler. 08/16/2023 the patient is here for a pulmonary follow-up visit. The patient had presented back in March with symptoms of cough. At that point she was started on inhaler therapy. She has significant asthma history significant wheezing. The patient may be a great candidate for biologics. However she has not had her blood work done as of yet. Now her symptoms have been getting worse. She is having increased cough she has chest tightness and wheezing. Moderate severity. She could not go to work because her symptoms were so significant and this is something that she does not do typically. The patient denies any fevers or chills and denies any sick contacts. We did review her last chest x-ray that she had back in demonstrating some slight opacity. Will have a repeat that x-ray and also the blood work to assess her eosinophilia. The patient will be maximize her respiratory therapy. She does have significant wheezing therefore will give a nebulizer treatment right now as well. 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 But my suspicion is most likely allergic with the change in seasons. If the patient continues to be symptomatic will consider starting biologic therapy. 09/27/2023 the patient is here for a pulmonary follow-up visit. The patient is feeling a lot better. She is having no symptoms at this time. She did take the prednisone for few days and also started the Symbicort. She was able to wean off. Now she can uses Symbicort as needed. We did review her chest x-ray demonstrates some hazy opacities suggesting some degree of pneumonitis. Although when I looked at it was not very impressed. In addition to that the patient did have blood work including allergy testing demonstrating significant allergies to mold. The patient does have a exposure to mold in the basement and also potentially in work. Areas. The patient will try to minimize exposure. They are running at the humidifier which would be helpful as well. The patient is a candidate for biologic therapies including the eosinophil count and IgE levels in her allergies. Although at this point she is doing better trying to avoid her allergens. And she is wearing a mask. All these things helpful. Therefore, she will continue using the Symbicort and will hold off on any biologic therapies at this time. Will follow up in sometimes 6-8 months. The patient has any issues prior to that she will call the office for an earlier assessment. 12/06/2023 the patient is here for sick visit. Apparently she has been sick for more than 2 weeks. She has had significant chest tightness and cough. She has had difficulty sleeping because of significant coughing. She has been using her inhaler with partial response. She did try to call the office but she could not get an appointment. Not sure if she tried going elsewhere. In the meantime she continued to get worse. Today she has significant chest tightness and cough. On examination she has significant wheezing. We did provide her to DuoNeb treatments to see if she responded and she did do a lot better. Therefore we did provide her with a nebulizer for her to take home with her. In the meantime will treat her home with prednisone and doxycycline for likely a postviral bacterial infection. Sounds like he probably had RSV or a viral syndrome the likely precipitated her asthma symptoms. She does have significant sick contacts at work. The patient will start taking the therapy if she has no better she will call the office for further management. 04/19/2024 the patient is here for a pulmonary follow-up visit. She has had a hard time with the breathing. She is coughing more and has more chest tightness and wheezing. She has been using her nebulizer. The patient did just complete a course of prednisone antibiotics. We did review her blood work. She does have significant eosinophilia. She also has an elevated IgE consistent with eosinophilic asthma. The patient will require additional prednisone since she is having significant wheezing and coughing. Although with her significant eosinophilia she will benefit from Fasenra. Therefore, will start the process of starting her Fasenra. She will need another course of prednisone in the meantime. 06/21/2024 the patient is here for a pulmonary follow-up visit. She is doing better. She did have take the prednisone which is reassuring. She also did not have state the antibiotics. She continues any inhalers. Not the weather improve after the rain the allergens have been decreasing and her breathing improves. She however still has wheezing on examination. She does have severe persistent uncontrolled asthma. Were still waiting for the approval for the Fasenra which I believe will be excellent addition to her respiratory regimen and improve her quality of life. Hopefully we can get that in soon. In the meantime she is going to continue taking her respiratory therapy and if her symptoms worsen she is going to go ahead and take the prednisone. 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 Review of Systems Const Reports difficulty sleeping and Denies fever(s) Eyes Denies blurry vision ENT Denies nasal congestion Card Denies chest pain and Reports dyspnea on exertion Resp Reports chest congestion, Reports cough, Denies hemoptysis, Reports dyspnea on exertion and Reports wheezing GI Reports dyspepsia Musc Reports no additional complaints Skin/Breast Denies rash Neuro Reports no additional complaints Steve/Lymph Denies lymphadenopathy Aller/Immun Reports wheezing Physical Exam Vital Signs: Last Vital Signs Pulse 71 06/21/24 09:09 Pulse Ox 98 06/21/24 09:09 Oxygen Delivery Method Room Air 06/21/24 09:09 BMI result Body Mass Index 25.4 Const General: comfortable HEENT Head: Yes normocephalic Neck Neck: Yes supple Chest Chest palpation & inspection: normal inspection of the chest Resp Effort & Inspection: normal respiratory effort Auscultation: wheezes and diminished lung sounds Cardio Rate: regular rate Rhythm: regular rhythm Heart sounds: S1 normal heart sound present and S2 normal heart sound present GI Palpation (GI): Soft to palpation Skin General skin exam: no rashes or lesions noted Extrem General: Yes no clubbing, cyanosis or edema Assessment & Plan Assessment & Plan (1) Asthma: Comment: Eosinophilic asthma Code(s): J45.909 - Unspecified asthma, uncomplicated Category: Medical Qualifiers: Asthma complication type: with acute exacerbation Asthma persistence: persistent Asthma severity: severe Qualified Code(s): J45.51 - Severe persistent asthma with (acute) exacerbation (2) Chronic cough: Code(s): R05.3 - Chronic cough Category: Medical (3) Allergies: Code(s): T78.40XA - Allergy, unspecified, initial encounter Category: Medical Qualifiers: Encounter type: initial encounter Qualified Code(s): T78.40XA - Allergy, unspecified, initial encounter (4) Bronchitis: Code(s): J40 - Bronchitis, not specified as acute or chronic Category: Medical Plan holding Azithromycin MWF Start Fasenra for severe Eosiniphilic asthma continue Symbicort TANESHA as needed Mold avoidence Tessalon pearls as needed F/U 2-3 months Coding Level of Care Code Est Pt Level 4 (02037) Complex EM visit Add On G2211 Diagnoses Severe persistent asthma with acute exacerbation J45.51 Asthma complication type: with acute exacerbation Asthma persistence: persistent Asthma severity: severe Chronic cough R05.3 Allergy, initial encounter T78.40XA Encounter type: initial encounter Bronchitis J40 Time Spent (min) 16
== END 2024-06-21 09:32 | disposition home or self-care (01) ==
PROVIDERS: PCP Internal Medicine; Visit Provider Hospitalist
DX: J45.51 Severe persistent asthma with (acute) exacerbation (principal); R05.3 Chronic cough; T78.40XA Allergy, unspecified, initial encounter; J40 Bronchitis, not specified as acute or chronic
CPT/HCPCS: 99214; G2211

== ENCOUNTER → 2024-06-21 09:06 | Outpatient (BNVA) | payer OTHER, SELFPAY | PROVIDERS: PCP Internal Medicine; Visit Provider Hospitalist | DX: K21.9 Gastro-esophageal reflux disease without esophagitis (principal) ==

== ENCOUNTER 2024-07-12 08:06 | Outpatient (AMB) | payer OTHER, SELFPAY ==
[2024-07-12 08:08] VITALS: BP 114/70; PULSE 72; O2SAT 98; BMI 26.2
--- NOTE | 2024-07-12 08:08 | MHC.PC.OV ---
Vital Signs 07/12/24 08:08 Height 5 ft Weight 134 lb BMI 26.2 BP 114/70 Blood Pressure Location Lt brachial Position Sitting Pulse 72 Pulse Source Pulse Oximeter Pulse Oximetry (%) 98 Oxygen Delivery Method Room Air Intake Visit Reasons: New pt visit PE Intake Note: Pt is here today for New patient visit PE. Allergies No Known Allergies Allergy (Verified 07/12/24 08:10) Medication List - Last Reconciled 07/12/24 by Renetta Groves MD acetaminophen 1,000 mg (2 x 500 mg) PO Q6H PRN albuterol sulfate 90 mcg/actuation 2 puffs inhalation Q6H PRN benralizumab (Fasenra Pen) Loading dose: 30mg SC every 4 weeks x 3, then, subcutaneously every 8 weeks 4 weeks Tobacco use date assessed: 07/12/24 Dental Screening Dental Screen Date: 07/12/24 Did you have a dental visit in the last 12 months?: Yes Did you have a dental problem in the last 6 months where you did not have access to dental care?: No Was dental information given to patient?: Patient has dentist HPI New pt visit PE HPI Details Pt presents for CLINICAL ESTHETICIAN PE. [facility] Medical History (Updated 07/12/24 @ 10:07 by Renetta Groves MD) Allergies Fracture of phalanx of ring finger Asthma Chronic cough Surgical History (Updated 07/12/24 @ 10:06 by Renetta Groves MD) Hx of mastectomy Family History (Updated 07/12/24 @ 08:45 by Renetta Groves MD) Father Hypertension Heart attack, Onset Age: 55 Mother No problems noted. 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 1. Little interest or pleasure in doing things: not at all 2. Feeling down, depressed, or hopeless: not at all 3. Trouble falling or staying asleep, or sleeping too much: not at all 4. Feeling tired or having little energy: not at all 5. Poor appetite or overeating: not at all 6. Feeling bad about yourself - or that you are a failure or have let yourself or your family down: not at all 7. Trouble concentrating on things, such as reading the newspaper or watching television: not at all 8. Moving or speaking so slowly that other people could have noticed. Or the opposite - being so fidgety or restless that you have been moving around a lot more than usual: not at all 9. Thoughts that you would be better off or of hurting yourself in some way: not at all Total score: 0 Depression Screening Interpretation: Negative Depression Screening Done: Yes 57781 - PHQ-9 Billing: Yes Source: Developed by Drs. Gerardo Dillard, Mariella Umaña, Rakesh Grissom and colleagues, with an educational ignacio from [employer]. Thrive Questionnaire Date Thrive assessed: 07/12/24 I am a: Patient What is your living situation today?: I have a steady place to live Within the past 12 months, did the food you bought not last and you didn't have the money to get more?: Never true Within the past 12 months, did you worry whether your food would run out before you got money to buy more?: Never true Do you have trouble paying for medicines?: No Do you have trouble getting transportation to medical appointments?: No Do you have trouble paying your heating and electricity bill?: No Do you have trouble taking care of your child, family member or friend?: No Do you have trouble with day-to-day activities such as bathing, preparing meals, shopping, managing finances, etc.?: No Are you currently unemployed and looking for a job?: No Are you interested in more education?: No Please select the resources that you would like help with: None THRIVE Score: 0 AUDIT C Alcohol Use Questionnaire (AUDIT-C) 1. How often do you have a drink containing alcohol?: Monthly or less 2. How many drinks containing alcohol do you have on a typical day when you are drinking?: 1 or 2 3. How often do you have six or more drinks on one occasion?: Never Total Score: 1 FATOUMATA-7 AMB Questionnaire FATOUMATA-7 Date FATOUMATA - 7 assessed: 07/12/24 Feeling nervous, anxious, or on edge: 0 = Not at all Not being able to stop or control worryin = Not at all Worrying too much about different things: 0 = Not at all Trouble relaxin = Not at all Being so restless that it is hard to sit still: 0 = Not at all Becoming easily annoyed or irritable: 0 = Not at all Feeling afraid as if something awful might happen: 0 = Not at all Total FATOUMATA-7 score (0-4 normal; 5-9 mild; 10-14 moderate; 15-21 severe): 0 Source: Developed by Drs. Gerardo Dillard, Mariella Umaña, Rakesh Grissom and colleagues, with an educational ignacio from [employer]. FATOUMATA-7 Assessment Billing FATOUMATA-7 Assessment Tool: FATOUMATA-7 Assessment 00032 Review of Systems Const All systems reviewed & are unremarkable except as noted in HPI and below Reports no additional complaints Eyes Reports no additional complaints ENT Reports no additional complaints Card Reports no additional complaints Resp Reports no additional complaints GI Reports no additional complaints Reports no additional complaints Physical exam (Primary Care) Vital Signs: Last Vital Signs Pulse 72 07/12/24 08:08 BP 114/70 07/12/24 08:08 Pulse Ox 98 07/12/24 08:08 Oxygen Delivery Method Room Air 07/12/24 08:08 BMI result Body Mass Index 26.2 Tobacco/Smoking Status: Tobacco use Status Tobacco use date assessed 07/12/24 07/12/24 08:14 Patient Tobacco Use Status Never used Tobacco 07/12/24 08:14 e-Cigarette/Vaping Use Never Used 07/12/24 08:14 PHQ-9: PHQ-9 Score PHQ-9: Total score 0 07/12/24 08:14 Depression Screening Interpretation: Negative Thrive Assessment: Date of Thrive Assessment Date Thrive assessed 07/12/24 07/12/24 08:14 Const General: no acute distress HENMT Head: Yes normal to inspection Ears: hearing grossly normal bilaterally Face and sinus: Yes normal facial exam Throat: Yes posterior oropharynx normal Eyes General: appearance normal, both eyes and all related structures Neck Neck: Yes supple Resp Effort & Inspection: normal respiratory effort Auscultation: clear to auscultation bilaterally Cardio Rhythm: regular rhythm Heart sounds: S1 normal heart sound present and S2 normal heart sound present GI Inspection: Yes normal to inspection Palpation (GI): Soft to palpation Percussion: Yes normal to percussion Auscultation: normal bowel sounds Assessment and Plan Assessment & Plan (1) Skin tag: Comment: face Code(s): L91.8 - Other hypertrophic disorders of the skin Plan: Referred to dermatology (2) Asthma: Comment: Eosinophilic asthma, mild , uses Albuterol prn 2-3 x a week. f/u Dr. 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 Orders: Orders IRON PROFILE Today J45.51 - Severe persistent asthma with (acute) exacerbation, Z00.00 - Encounter for general adult medical examination without abnormal findings, Z85.3 - Personal history of malignant neoplasm of breast Complete Blood Count Auto Diff Today J45.51 - Severe persistent asthma with (acute) exacerbation, Z00.00 - Encounter for general adult medical examination without abnormal findings, Z85.3 - Personal history of malignant neoplasm of breast TSH reflex Free T4 Today J45.51 - Severe persistent asthma with (acute) exacerbation, Z00.00 - Encounter for general adult medical examination without abnormal findings, Z85.3 - Personal history of malignant neoplasm of breast UA w Microscopic Today J45.51 - Severe persistent asthma with (acute) exacerbation, Z00.00 - Encounter for general adult medical examination without abnormal findings, Z85.3 - Personal history of malignant neoplasm of breast Lipid Panel Today J45.51 - Severe persistent asthma with (acute) exacerbation, Z00.00 - Encounter for general adult medical examination without abnormal findings, Z85.3 - Personal history of malignant neoplasm of breast Comprehensive [place]. Panel Fast Today J45.51 - Severe persistent asthma with (acute) exacerbation, Z00.00 - Encounter for general adult medical examination without abnormal findings, Z85.3 - Personal history of malignant neoplasm of breast Referrals Dermatology Referral L91.8 - Other hypertrophic disorders of the skin Coding Level of Care Code Est Pt Prev Care 40-64y(71292) Diagnoses Skin tag L91.8 Severe persistent asthma with acute exacerbation J45.51 Asthma severity: severe Asthma persistence: persistent Asthma complication type: with acute exacerbation Hx of screening mammography Z92.89 Hx of colonoscopy Z98.890 Normal pelvic exam Z01.419 HX: breast cancer Z85.3 Annual physical exam Z00.00 Additional Codes FATOUMATA-7 Assessment Billing - FATOUMATA-7 Assessment Tool: FATOUMATA-7 Assessment 55686 ([id number])
== END 2024-07-12 09:06 | disposition home or self-care (01) ==
PROVIDERS: PCP Internal Medicine; Visit Provider Internal Medicine
DX: Z00.00 Encounter for general adult medical examination without abnormal findings (principal); L91.8 Other hypertrophic disorders of the skin; J45.51 Severe persistent asthma with (acute) exacerbation; Z92.89 Personal history of other medical treatment; Z98.890 Other specified postprocedural states; Z85.3 Personal history of malignant neoplasm of breast
CPT/HCPCS: 99396

== ENCOUNTER 2024-07-12 08:58 | Outpatient (REF) | payer OTHER, SELFPAY ==
[2024-07-12 10:30] LABS: MANUAL DIFF FLAG NO
[2024-07-12 10:36] LABS: Basophils Percent Auto 0.6 % (0-2); Eosinophils Absolute Auto 0.5 X10*3/uL (0.0-0.4); Hemoglobin 13.4 g/dl (12.0-16.0); Imm Gran Abs Auto 0.01 X10*3/uL (0.00-0.03); Imm Gran Pct Auto 0.2 % (0.0-0.4); Lymphocytes Absolute Auto 2.1 X10*3/uL (1.2-4.9); Lymphocytes Percent Auto 43.5 % (20-40); Mean Corpuscular HGB Conc 34.4 g/dl (31.0-35.0); Mean Corpuscular Hemoglobin 30.2 pg (27.0-33.0); Mean Corpuscular Volume 87.8 fL (80.0-98.0); Monocytes Absolute Auto 0.4 X10*3/uL (0.1-1.2); Monocytes Percent Auto 7.5 % (2-11); Neutrophils Absolute Auto 1.8 x10*3/uL (2.0-8.3); Neutrophils Percent Auto 37.2 % (45-73); Platelet Count 270 X10*3/uL (160-400); Red Blood Count 4.44 X10*6/uL (4.20-5.50); Red Cell Distribution Width 13.2 % (11.0-16.0); White Blood Count 4.8 X10*3/uL (4.8-10.8)
[2024-07-12 10:45] LABS: Appearance Urine Clear; Color Urine Yellow; Glucose Urine UA Negative (Negative); Leukocyte Esterase Urine Trace (Negative); Nitrite Urine Negative (Negative); PH 6.5 (5.0-9.0); UMIC TRIGGER UA YES; Urine Blood Small (1+) (Negative); Urine Ketones Negative (Negative); Urine Protein Negative (Neg-Trace)
[2024-07-12 10:52] LABS: Alanine Aminotransferase 32 U/L (0-31); Albumin Level 3.9 g/dL (3.5-5.0); Alkaline Phosphatase 90 U/L (39-117); Anion Gap 9 (12-20); Aspartate Amino Transferase 38 U/L (5-31); Bilirubin Total 0.6 mg/dL (0.0-1.0); Blood Urea Nitrogen 17 mg/dL (9-16); Calcium 9.4 mg/dL (8.4-10.2); Carbon Dioxide 27 mmol/L (22-29); Chloride 107 mmol/L (96-108); Cholesterol 251 mg/dL (<200); Estimated Glomerular Filt Rate > 60; Glucose Fasting 95 mg/dL (60-99); HDL Cholesterol 67 mg/dL (>40); Iron 56 mcg/dL (30-160); LDL Cholesterol Calculated 168 mg/dL (<100); Percent Iron Saturation 15 % (15-50); Potassium 4.2 mmol/L (3.3-5.1); Sodium 139 mmol/L (135-145); Total Iron Binding Capacity 381 mcg/dL (228-428); Total Protein 7.2 g/dL (6.5-8.0); Triglycerides 80 mg/dL (<150); Unsaturated Iron Binding 325 ug/dL
[2024-07-12 10:52] LABS: Bacteria Urine None Seen (None Seen); Hyaline Casts Urine 0-2 /LPF (0-2); WBC Urine 0-5 /HPF (0-5)
[2024-07-12 11:09] LABS: TSH reflex Free T4 2.57 uIU/mL (0.32-4.0)
== END 2024-07-12 08:59 | disposition home or self-care (01) ==
LOC: HO.HMGCLDS 08:58
PROVIDERS: PCP Internal Medicine; Visit Provider Internal Medicine
DX: Z00.00 Encounter for general adult medical examination without abnormal findings (principal); Z13.6 Encounter for screening for cardiovascular disorders; J45.51 Severe persistent asthma with (acute) exacerbation; Z85.3 Personal history of malignant neoplasm of breast
CPT/HCPCS: 36415; 80053; 80061; 81001; 83540; 84443; 85025

== ENCOUNTER 2024-07-25 08:14 | Outpatient (REF) | payer OTHER, SELFPAY ==
--- NOTE | ~2024-07-25 | US_ITS ---
EXAMINATION: US RETROPERITONEAL COMPLETE (RENAL) CLINICAL INFORMATION: Other microscopic hematuria. COMPARISON: None available. TECHNIQUE: Real-time imaging of the kidneys and bladder. FINDINGS: RIGHT KIDNEY: 9.0 x 4.5 x 5.2 cm (SAG x AP x TRV). The kidney is normal in size, contour, and echogenicity. Renal cortical thickness is normal. No calculi or focal parenchymal lesions. No hydronephrosis. LEFT KIDNEY: 9.0 x 5.0 x 4.8 cm (SAG x AP x TRV). The kidney is normal in size, contour, and echogenicity. Renal cortical thickness is normal. No calculi or focal parenchymal lesions. No hydronephrosis. BLADDER: Partially distended. Bilateral ureteral jets are demonstrated. Prevoid bladder volume is 115 mL. Postvoid bladder volume is 15.1 mL. US/US retroperitoneal comp IMPRESSION: 1. No nephrolithiasis or hydronephrosis. 2. Postvoid bladder volume of 15.1 mL with visualization of the bilateral ureteral jets. Electronically signed by: Brenda Singh MD 07/29/2024 03:21 PM EDT
[2024-07-25 10:53] LABS: Appearance Urine Clear; Color Urine Yellow; Glucose Urine UA Negative (Negative); Leukocyte Esterase Urine Small (1+) (Negative); Nitrite Urine Negative (Negative); PH 7.5 (5.0-9.0); Specific Gravity - Urine <= 1.005 (1.005-1.025); UMIC TRIGGER UA YES; Urine Blood Trace (Negative); Urine Ketones Negative (Negative); Urine Protein Negative (Neg-Trace)
[2024-07-25 11:04] LABS: Bacteria Urine None Seen (None Seen); Hyaline Casts Urine 0-2 /LPF (0-2); RBC Urine 0-2 /HPF (0-2); WBC Urine 0-5 /HPF (0-5)
== END 2024-07-25 08:15 | disposition home or self-care (01) ==
LOC: HO.HMGCX 08:14
PROVIDERS: PCP Internal Medicine; Visit Provider Internal Medicine
DX: R31.29 Other microscopic hematuria (principal)
CPT/HCPCS: 76770; 81001

== ENCOUNTER 2025-05-02 12:11 | Outpatient (REF) | payer OTHER, SELFPAY ==
--- NOTE | ~2025-05-02 | XR_ITS ---
EXAMINATION: XR KNEE, LEFT CLINICAL INFORMATION: M25.562 - Pain in left knee COMPARISON: None available. TECHNIQUE: Two views of the left knee. FINDINGS: No fracture, dislocation, or suspicious bone lesion. Moderate to severe medial compartment joint space loss with mild subchondral sclerosis, and marginal osteophytic spurs. Mild compensatory widening of the lateral compartment. There are lateral compartment marginal spurs. Minimal varus angulation of the joint. There is spurring of the tibial spines. Advanced arthrosis in the patellofemoral joint with large spurs present. There is chondrocalcinosis in the medial lateral compartments. Findings suggest CPPD. There is no joint effusion. The soft tissues appear normal. XR/XR knee LT 2V IMPRESSION: 1. 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 2. Chondrocalcinosis. Findings suggest CPPD. Electronically signed by: Ar Franco MD 05/03/2025 09:29 AM EDT
== END 2025-05-02 12:12 | disposition home or self-care (01) ==
LOC: HO.HMGCX 12:11
PROVIDERS: PCP Internal Medicine; Visit Provider Internal Medicine
DX: M25.562 Pain in left knee (principal); E78.5 Hyperlipidemia, unspecified; E55.9 Vitamin D deficiency, unspecified
CPT/HCPCS: 73560; 96127

== ENCOUNTER 2025-05-02 12:11 | Outpatient (AMB) | payer OTHER, SELFPAY ==
[2025-05-02 12:12] VITALS: BP 104/78; PULSE 67; RESP 18; TEMP 36.7; O2SAT 97; BMI 26.4
--- NOTE | 2025-05-02 12:12 | A.OFFPC_ITS ---
Vital Signs 05/02/25 12:12 Height 5 ft Weight 135 lb BMI 26.4 BP 104/78 Blood Pressure Location Lt brachial Position Sitting Respiration 18 Pulse 67 Pulse Source Pulse Oximeter Temp 98.1 F Temp Source Oral Pulse Oximetry (%) 97 Oxygen Delivery Method Room Air Intake Visit Reasons: Knee swelling and pain Intake Note: Pt is here today for a sick visit. Pt c/o L knee pain and swelling for a while now. Allergies No Known Allergies Allergy (Verified 05/02/25 12:19) Medication List - Last Reconciled 05/02/25 by Renetta Groves MD acetaminophen 1,000 mg (2 x 500 mg) PO Q6H PRN albuterol sulfate 90 mcg/actuation 2 puffs inhalation Q6H PRN benralizumab (Fasenra Pen) Loading dose: 30mg SC every 4 weeks x 3, then, subcutaneously every 8 weeks 4 weeks benzonatate 200 mg PO BID PRN 30 days Tobacco use date assessed: 05/02/25 Dental Screening Dental Screen Date: 05/02/25 Did you have a dental visit in the last 12 months?: Yes Did you have a dental problem in the last 6 months where you did not have access to dental care?: No Was dental information given to patient?: Patient has dentist HPI Knee swelling and pain HPI Details Pt c/o chronic L knee pain for 2 yrs, getting worse over the out few months. The pain is worse when patient is standing or walking for long time. 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 She had a knee XR 2 years ago. [facility] Medical History Allergies Fracture of phalanx of ring finger Asthma Chronic cough Surgical History Hx of mastectomy Family History Father Hypertension Heart attack, Onset Age: 55 Mother No problems noted. 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 1. Little interest or pleasure in doing things: not at all 2. Feeling down, depressed, or hopeless: not at all 3. Trouble falling or staying asleep, or sleeping too much: not at all 4. Feeling tired or having little energy: not at all 5. Poor appetite or overeating: not at all 6. Feeling bad about yourself - or that you are a failure or have let yourself or your family down: not at all 7. Trouble concentrating on things, such as reading the newspaper or watching television: not at all 8. Moving or speaking so slowly that other people could have noticed. Or the opposite - being so fidgety or restless that you have been moving around a lot more than usual: not at all 9. Thoughts that you would be better off or of hurting yourself in some way: not at all Total score: 0 Depression Screening Interpretation: Negative Depression Screening Done: Yes 59000 - PHQ-9 Billing: Yes Source: Developed by Drs. Gerardo Dillard, Mariella Umaña, Rakesh Grissom and colleagues, with an educational ignacio from [employer]. Thrive Questionnaire Date Thrive assessed: 05/02/25 I am a: Patient What is your living situation today?: I have a steady place to live Within the past 12 months, did the food you bought not last and you didn't have the money to get more?: Never true Within the past 12 months, did you worry whether your food would run out before you got money to buy more?: Never true Do you have trouble paying for medicines?: No Do you have trouble getting transportation to medical appointments?: No Do you have trouble paying your heating and electricity bill?: No Do you have trouble taking care of your child, family member or friend?: No Do you have trouble with day-to-day activities such as bathing, preparing meals, shopping, managing finances, etc.?: No Are you currently unemployed and looking for a job?: No Are you interested in more education?: No THRIVE Score: 0 AUDIT C Alcohol Use Questionnaire (AUDIT-C) 1. How often do you have a drink containing alcohol?: Monthly or less 2. How many drinks containing alcohol do you have on a typical day when you are drinking?: 1 or 2 3. How often do you have six or more drinks on one occasion?: Never Total Score: 1 FATOUMATA-7 AMB Questionnaire FATOUMATA-7 Date FATOUMATA - 7 assessed: 05/02/25 Feeling nervous, anxious, or on edge: 0 = Not at all Not being able to stop or control worryin = Not at all Worrying too much about different things: 0 = Not at all Trouble relaxin = Not at all Being so restless that it is hard to sit still: 0 = Not at all Becoming easily annoyed or irritable: 0 = Not at all Feeling afraid as if something awful might happen: 0 = Not at all Total FATOUMATA-7 score (0-4 normal; 5-9 mild; 10-14 moderate; 15-21 severe): 0 Source: Developed by Drs. Gerardo Dillard, Mariella Umaña, Rakesh Grissom and colleagues, with an educational ignacio from [employer]. FATOUMATA-7 Assessment Billing FATOUMATA-7 Assessment Tool: FATOUMATA-7 Assessment 85688 Review of Systems Const All systems reviewed & are unremarkable except as noted in HPI and below Eyes Reports no additional complaints ENT Reports no additional complaints Card Reports no additional complaints Resp Reports no additional complaints GI Reports no additional complaints Reports no additional complaints Physical exam (Primary Care) Vital Signs: Last Vital Signs Temp 98.1 F 05/02/25 12:12 Pulse 67 05/02/25 12:12 Resp 18 05/02/25 12:12 BP 104/78 05/02/25 12:12 Pulse Ox 97 05/02/25 12:12 Oxygen Delivery Method Room Air 05/02/25 12:12 BMI result Body Mass Index 26.4 Tobacco/Smoking Status: Tobacco use Status Tobacco use date assessed 05/02/25 05/02/25 12:24 Patient Tobacco Use Status Never used Tobacco 05/02/25 12:24 e-Cigarette/Vaping Use Never Used 05/02/25 12:14 PHQ-9: PHQ-9 Score PHQ-9: Total score 0 05/02/25 12:15 Depression Screening Interpretation: Negative Thrive Assessment: Date of Thrive Assessment Date Thrive assessed 05/02/25 05/02/25 12:14 Const General: no acute distress HENMT Head: Yes normal to inspection Ears: hearing grossly normal bilaterally Face and sinus: Yes normal facial exam Eyes General: appearance normal, both eyes and all related structures Resp Effort & Inspection: normal respiratory effort Auscultation: clear to auscultation bilaterally Cardio Rhythm: regular rhythm Heart sounds: S1 normal heart sound present and S2 normal heart sound present Extrem Other: Left knee with decreased range of motion medial aspect tenderness slight crepitus, no soft tissue swelling erythema warmth Coding Level of Care Code Est Pt Level 4 (24382) Diagnoses Knee pain, left M25.562 Hyperlipemia E78.5 Vitamin D deficiency E55.9 Additional Codes FATOUMATA-7 Assessment Billing - FATOUMATA-7 Assessment Tool: FATOUMATA-7 Assessment 85205 ([id number]) PHQ-9 - 61315 - PHQ-9 Billing: Yes ([id number]) Assessment & Plan Assessment & Plan (1) Knee pain, left: Code(s): M25.562 - Pain in left knee Category: Medical Plan: Obtain x-ray of left knee meloxicam for 10 days is prescribed patient will be referred to physical therapy if she has advanced osteoarthritis on x-rays she will be referred to orthopedic surgeon of her choice (2) Hyperlipemia: Code(s): E78.5 - Hyperlipidemia, unspecified Category: Medical Plan: Low-cholesterol diet discussed with the patient she will return for fasting blood work (3) Vitamin D deficiency: Code(s): E55.9 - Vitamin D deficiency, unspecified Category: Medical Plan: Continue vitamin-D supplement check the level Orders: Orders 2 Complete Blood Count Auto Diff Today E55.9 - Vitamin D deficiency, unspecified, Z00.00 - Encounter for general adult medical examination without abnormal findings XR knee LT 2V Today M25.562 - Pain in left knee PT Evaluation and Treatment Today M25.562 - Pain in left knee Lipid Panel Today E78.5 - Hyperlipidemia, unspecified Comprehensive [place]. Panel Fast Today E78.5 - Hyperlipidemia, unspecified Vitamin D 25-OH Total Today E55.9 - Vitamin D deficiency, unspecified, Z00.00 - Encounter for general adult medical examination without abnormal findings TSH reflex Free T4 Today E55.9 - Vitamin D deficiency, unspecified, Z00.00 - Encounter for general adult medical examination without abnormal findings Medications: New meloxicam 15 mg PO DAILY 10 tabs 0RF
--- OUTSIDE RECORDS SUMMARY | 2025-05-02 12:50 | XMS_ITS | Clinical Summary ---
Author Organization [facility] Address [address] [id number] Care Team Providers Care Grounds Manager Name Role Phone Renetta Groves MD Primary Care Provider [phone] Allergies No known active allergies Medications Medication Sig Dispensed Refills Start Date End Date Status vitamin D3 (VITAMIN D3) 25 MCG (1000 UT) tablet Take 1 tablet (1,000 Units total) by mouth daily. 0 Active Multiple Vitamin (multivitamin) tablet Take 1 tablet by mouth daily. 0 Active tamoxifen (NOLVADEX) 20 MG tablet Take 1 tablet (20 mg total) by mouth daily 30 tablet 3 07/11/2021 Active Additional Information Patient not taking.Reported on 08/28/2024 Active Problems Problem Noted Date Diagnosed Date Malignant neoplasm of overla pping sites of right breast in female, estrogen receptor positive 03/16/2019 Social History Tobacco Use Types Packs/Day Years Used Date Smoking Tobacco: Never Assessed Sex and Gender Information Value Date Recorded Sex Assigned at Not on file Gender Identity Not on file Sexual Orientation Not on file Job Start Date Occupation Industry Not on file Not on file Not on file Last Filed Vital Signs Vital Sign Reading Time Taken Comments Blood Pressure 114/47 08/28/2024 9:55 AM EDT Pulse 64 08/28/2024 9:55 AM EDT Temperature 36.8 ??C (98.2 ??F) 08/28/2024 9:55 AM ED T Respiratory Rate - - Oxygen Saturation 98% 08/28/2024 9:55 AM EDT Inhaled Oxygen Concentration - - Weight 59.4 kg (131 lb) 08/28/2024 9:55 AM EDT Height 154.9 cm (5' 1 ) 08/28/2024 9:55 AM EDT Body Mass Index 24.75 08/28/2024 9:55 AM EDT Plan of Treatment Health Maintenance Due Date Last Done Comments Hepatitis C Screening 1964 COVID-19 Vaccine (#1) 1969 Pneumococcal Vaccine (1 of 2 - PCV) 1970 Depression Screening 1976 Preventative Health Evaluation 1982 DTap / Tdap / Td (1 - Tdap) 1983 Shingrix-Zoster Vaccine (1 of 2) 1983 Cervical Cancer Screening (P ap Smear) 1985 Colon Cancer Screening (Colonoscopy) 2009 Breast Cancer Screening (Mammogram) 2014 Influenza Vaccine (Season Ended) 2025 RSV Adult > 60+ Yrs or Pregn ant (1 - 1-dose 75+ series) 2039 Hepatitis B Vaccines Aged Out No long er eligible based on patient's age to complete this topic RSV Ped < 20 months Aged Out No longe r eligible based on patient's age to complete this topic Care Teams Grounds Manager Relationship Specialty Start Date End Date Renetta Groves MD [address] [place] [id number] PCP - General Top Frame Fitter 08/28/24
== END 2025-05-02 13:37 | disposition home or self-care (01) ==
LOC: HO.HMCC 12:12
PROVIDERS: PCP Internal Medicine; Visit Provider Internal Medicine
DX: M25.562 Pain in left knee (principal); E78.5 Hyperlipidemia, unspecified; E55.9 Vitamin D deficiency, unspecified

== ENCOUNTER → 2025-05-02 13:08 | Outpatient (BNV) | payer OTHER, SELFPAY | PROVIDERS: PCP Internal Medicine; Visit Provider Radiology Diagnostic Radiology | DX: M17.12 Unilateral primary osteoarthritis, left knee (principal); M11.262 Other chondrocalcinosis, left knee | CPT/HCPCS: 73560 ==

== ENCOUNTER 2025-08-20 07:25 | Outpatient (REF) | payer OTHER, SELFPAY ==
--- NOTE | ~2025-08-20 | XR_ITS ---
CLINICAL HISTORY: M25.569 - Pain in unspecified knee --- Additional Notes or Special Instructions: ap standing sunrise Two views of the left knee. AP view of the bilateral knees. Weight bearing views were obtained. COMPARISON: None FINDINGS: AP and patellar views of the left knee were obtained. Left knee: Medial joint space narrowing with near [id number] apposition along the medial compartment. Tibial spine spurring. Tricompartment osteophytes. Visualized portions of the distal left femur, patella, and proximal tibia and fibula appear intact. Limited AP view of the right knee: Medial joint space narrowing. Osteophytes present along the medial and lateral compartments. Tibial spine spurring. Visualized portions of the distal right femur and proximal tibia and fibula appear intact. IMPRESSION 1. Tricompartment degenerative changes of the left knee most pronounced within the medial compartment where there is near [id number] apposition. This document has been electronically signed by: Herman Blanchard MD on 08/21/2025 14:45:09
--- OUTSIDE RECORDS SUMMARY | 2025-08-20 07:29 | XMS_ITS | Clinical Summary ---
Author Organization [facility] Address [address] [place] [phone] Phone Care Team Providers Care Bulk Loader Name Role Phone Pcp, Unknown Primary Care Provider Unavailabl e Allergies No known active allergies Medications No known medications Social History Tobacco Use Types Packs/Day Years Used Date Smoking Tobacco: Never Assessed Education Answer Date Recorded Are you interested in more education? Not on michelle e 03/06/2024 Are you concerned about learning? Not on file 03/06/2024 No 03/06/2024 No 03/06/2024 Digital Access Answer Date Recorded No 03/06/2024 No 03/06/2024 Reliable internet access at home? Not on file 03/06/2024 Device with a working camera? Not on file Comments Unknown Sex and Gender Information Value Date Recorded Sex Assigned at Not on file Legal Sex Female 9:03 AM EDT Gender Identity Not on file Sexual Orientation Not on file Plan of Treatment Health Maintenance Due Date Last Done Comments LIPID PANEL 1964 DEPRESSION SCREENING 1976 SMOKING Hx and SMOKELESS TOBACCO SCREENING 1977 HEPATITIS C SCREENING 1982 HIV ONE-TIME SCREENING (18-65 YEARS) 1982 PAP SMEAR 1985 MAMMOGRAM 2004 COLOGUARD 2009 COLONOSCOPY 2009 COLORECTAL CANCER SCREENING 2009 FIT TEST 2009 FOBT 2009 SIGMOIDOSCOPY 2009 VIRTUAL COLONOSCOPY 2009 PNEUMOCOCCAL VACCINES (50+ years) (1 of 1 - PCV) 2014 ZOSTER VACCINES (1 of 2) 2014 INFLUENZA VACCINE (#1) 2025 , 12/01/2022, 09/17/2020 COVID-19 VACCINE ( season) 2025 09/27/2023, 12/01/2022, 04/07/2022, Additional history exists Adult Td,Tdap Booster 06/14/2029 06/14/2019 RSV VACCINE (1 - 1-dose 75+ series) 2039 HEPATITIS A VACCINES Aged Out No long er eligible based on patient's age to complete this topic HIB VACCINES Aged Out No longer eligi ble based on patient's age to complete this topic MENINGOCOCCAL VACCINES (ACWY) Aged Out No longer eligible based on patient's age to complete this topic MENINGOCOCCAL VACCINES (B) Aged Out N o longer eligible based on patient's age to complete this topic Medical Devices Not on file Insurance [facility] POS E[facility] POS EPO [address] [place], [place] [id number] POS EPO [facility] POS EPO [employer] O POS EPO Care Teams Bulk Loader Relationship Specialty Start Date End Date Pcp, Unknown PCP - General 03/06/24 Additional Source Comments The information contained in this document represents components of the legal health record. It is not the complete legal health record.[facility]
--- OUTSIDE RECORDS SUMMARY | 2025-08-20 07:29 | XMS_ITS | Clinical Summary ---
Author Organization [facility] Address [address] [place] [phone] Phone Care Team Providers Care Engine Testing Supervisor Name Role Phone Renetta Groves MD Primary Care Provider [phone] Allergies No known active allergies Medications tretinoin (RETIN-A) 0.025 % cream Apply pea size amount to dry skin at bedtime and then cover with a noncomedogenic moisturizer 3 Active tamoxifen citrate (TAMOXIFEN ORAL) Take 1 tablet by mouth. Active Active Problems Problem Noted Date Diagnosed Date Breast cancer, right breast (CMS/HCC V24, CMS/HC C V28) 11/08/2024 Overview (11/08/2024): diagnosed in Sep 2011, s/p right mastectomy, follows with Oncologist Dr Raheem simmons, on Tamoxifen, negative for genetic susceptibilty as per patient, on tamoxifen, completed Radiation therapy Xanthelasma 08/29/2012 Social History Tobacco Use Types Packs/Day Years Used Date Smoking Tobacco: Never Assessed Comments Unknown Sex and Gender Information Value Date Recorded Sex Assigned at Not on file Legal Sex Female 10:49 AM EST Gender Identity Not on file Sexual Orientation Not on file Obstetrics History Last Filed Vital Signs Vital Sign Reading Time Taken Comments Blood Pressure 132/47 03/07/2025 9:55 AM EDT Pulse 67 03/07/2025 9:55 AM EDT Temperature 36.8 C (98.3 F) 03/07/2025 9:55 AM EDT Respiratory Rate - - Oxygen Saturation 100% 03/07/2025 9:55 AM EDT Inhaled Oxygen Concentration - - Weight 61.7 kg (136 lb) 03/07/2025 9:55 AM EDT Height 151.4 cm (4' 11.6 ) 11/04/2022 9:23 AM ES T Body Mass Index 26.92 11/04/2022 9:23 AM EST Plan of Treatment Upcoming Encounters Date Type Department Care Team (Late st Contact Info) Description 09/06/2025 9:30 AM EDT Office Visit [facility] H[facility]ology Oncology [address] [place] [address] Raheem Simmons MD [address] [place] [address] Health Maintenance Due Date Last Done Comments Breast Cancer Screening 1965 Pneumococcal Vaccine: 50+ Years (1 of 2 - PCV) 1983 Zoster Vaccines (1 of 2) 1983 Cervical Cancer Screening: Pap Smear 1985 Colorectal Cancer Screening: Colonoscopy 11/06/2022 HIV Screening 11/06/2022 Hepatitis C Screening 11/06/2022 Social Influencers of Health Screening 11/06/2022 Depression Screening 11/29/2024 COVID-19 Vaccine ( season) 2025 09/27/2023, 12/01/2022, 04/07/2022, Additional history exists Influenza Vaccine (#1) 2025 , 12/01/2022, 09/17/2020 DTaP,Tdap,and Td Vaccines (2 - Td or Tdap) 06/14/2029 06/14/2019 RSV Immunization Adult Patients (1 - 1-dose 75+ series) 2039 HIB Vaccines Aged Out No longer eligi ble based on patient's age to complete this topic HPV Vaccines Aged Out No longer eligi ble based on patient's age to complete this topic Hepatitis A Vaccines Aged Out No long er eligible based on patient's age to complete this topic Hepatitis B Vaccines Aged Out No long er eligible based on patient's age to complete this topic IPV Vaccines Aged Out No longer eligi ble based on patient's age to complete this topic MMR Vaccines Aged Out No longer eligi ble based on patient's age to complete this topic Meningococcal ACWY Vaccine Aged Out N o longer eligible based on patient's age to complete this topic Meningococcal B Vaccine Aged Out No l onger eligible based on patient's age to complete this topic RSV Immunization Patients Under 20 months Aged Out No longer eligible based on patient's age to complete this topic Varicella Vaccines Aged Out No longer eligible based on patient's age to complete this topic Insurance [employer] Care Teams Engine Testing Supervisor Relationship Specialty Start Date End Date Renetta Groves MD [address] [place] [phone] PCP - General 08/28/24
--- OUTSIDE RECORDS SUMMARY | 2025-08-20 07:29 | XMS_ITS | Clinical Summary ---
Author Organization [facility] Address [address] [id number] Care Team Providers Care Car Repairer Name Role Phone Renetta Groves MD Primary Care Provider [phone] Allergies No known active allergies Medications Medication [...] 64 08/28/2024 9:55 AM EDT Temperature 36.8 C (98.2 F) 08/28/2024 9:55 AM EDT Respiratory Rate - - Oxygen Saturation 98% [...] Breast Cancer Screening (Mammogram) 2014 Influenza Vaccine (#1) 2025 RSV Adult > 60+ Yrs or Pregn ant (1 - 1-dose 75+ series) 2039 Hepatitis B Vaccines Aged Out No long er eligible based on patient's age to complete this topic RSV Ped < 20 months Aged Out No longe r eligible based on patient's age to complete this topic Care Teams Car Repairer Relationship Specialty Start Date End Date Renetta Groves MD [address] [place] [phone] PCP - General Cnc Service Technician 08/28/24
== END 2025-08-20 07:26 | disposition home or self-care (01) ==
LOC: HO.HOSX 07:25
PROVIDERS: Visit Provider Physician Assistant
DX: M17.12 Unilateral primary osteoarthritis, left knee (principal)
CPT/HCPCS: 73560

== ENCOUNTER 2025-08-20 13:39 | Outpatient (AMB) | payer OTHER, SELFPAY ==
--- NOTE | 2025-08-20 13:56 | A.OFFVIS_ITS ---
Intake Visit Reasons: Newprob-Unilateral primary osteoarthritis, LT knee Intake Note: Susy is a 59 year old female who presents today for a evaluation of her left knee pain. Patient reports ongoing pain for about 3 - 4 years. She has notices that her right knee is causing her pain as well, but her left knee is worse at the moment. Patient notices that her pain is on the medial aspect of the knee and sometimes feel like pins and needle. She mentions that she hasn't taken anything for the pain since she can bear the pain but when she can't take the pain she will take a Tylenol or NSAIDs if needed. Her pain is worse when she is jogging and getting up from a sitting position. Mee Gonzalezgan One her feet for more that 8 hours IMPRESSION: 1. 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 2. Chondrocalcinosis. Findings suggest CPPD. Allergies No Known Allergies Allergy (Verified 08/20/25 14:06) HPI HPI Newprob-Unilateral primary osteoarthritis, LT knee: Details: Ms. Pelayo is a 59-year-old female who presents to the office today for evaluation of chronic left knee pain for the past 3-4 years. She reports there has been no injury or trauma to the left knee but over time her pain has been gradually increasing and becoming more consistent. She reports she used to run but is no longer able to do so. Both knees do bother her but the left is greater than the right. She points to the medial aspect of the left knee where she experiences the most pain. [facility] Medical History Allergies Fracture of phalanx of ring finger Asthma Chronic cough Surgical History Hx of mastectomy Family History Father Hypertension Heart attack, Onset Age: 55 Mother No problems noted. 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 Tenderness to palpation medial joint line. Range of motion 0-120. NVI. Psych Appearance: grossly normal Mental Status: mental status grossly normal Attitude: cooperative Assessment & Plan Assessment & Plan (1) Osteoarthritis of left knee: Code(s): M17.12 - Unilateral primary osteoarthritis, left knee Category: Medical Plan Ms. Pelayo is a 59-year-old female who presents to the office today for evaluation of chronic left knee pain for the past 3-4 years. She reports there has been no injury or trauma to the left knee but over time her pain has been gradually increasing and becoming more consistent. She reports she used to run but is no longer able to do so. Both knees do bother her but the left is greater than the right. She points to the medial aspect of the left knee where she experiences the most pain. While the office today, we discussed conservative versus surgical intervention for the left knee osteoarthritis. We discussed physical therapy and knee bracing. Patient is interested in trying a knee brace. She was fit for a Genumed knee brace off the shelf. She will wear this for activities. Deferred on physical therapy at this time. We also discussed the role of cortisone injections in which the patient states that she is not having significant pain at this time and would like to defer. We briefly discussed total joint replacement for the left knee however the patient does not report pain that is impeding on her activities of daily living. She will additionally take [id number] anti-inflammatory as needed and follow up PRN. X-rays of the left knee which were obtained while in the office today and were reviewed by me, Lor Jefferson PA-C, revealed osteoarthritis. Orders: Orders XR knee LT 2V Today M25.569 - Pain in unspecified knee Coding Level of Care Code New Pt Level 3 (12130) Diagnoses Osteoarthritis of left knee M17.12
== END 2025-08-20 14:30 | disposition home or self-care (01) ==
LOC: HO.HOS 13:39
PROVIDERS: PCP Internal Medicine; Visit Provider Physician Assistant
DX: M17.12 Unilateral primary osteoarthritis, left knee (principal)
CPT/HCPCS: 99213

== ENCOUNTER → 2025-08-20 13:48 | Outpatient (BNV) | payer OTHER, SELFPAY | PROVIDERS: Visit Provider Radiology Diagnostic Radiology | DX: M17.12 Unilateral primary osteoarthritis, left knee (principal) | CPT/HCPCS: 73560 ==

== ENCOUNTER 2025-10-04 13:43 | Outpatient (AMB) | payer OTHER, SELFPAY ==
[2025-10-04 13:47] VITALS: BP 110/78; PULSE 74; O2SAT 100; BMI 27.6
--- NOTE | 2025-10-04 13:47 | A.OFFVIS_ITS ---
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 The patient states that she was in her usual state health until early November when she developed COVID-19. She was not very sick from COVID-19 althou she developed a worsening cough. Hiking in nature. Nonproductive. Typically worse at nighttime. Fax it her sleep and also affect her who is I am affected by the constant coughing. Subsequently she recovers from the COVID but then still continue with cough. Moderate severity. She denies any significant reflux disease. She denies any significant nasal congestion. She does have underlying allergies. There is up also positive family history of significant allergies in the family. She had gotten blood work demonstrating significant eosinophilia in the past. In addition to this the patient did have a chest x-ray sometime in 2020 demonstrating postoperative changes with the right sided breast prosthesis in addition to a hazy opacity in the upper lung area on the right side. She has not had any x-rays since then. Therefore, because of the abnormal blood work will going to go ahead and request additional blood work and also request a repeat chest x-ray to follow up those findings specially with chronic cough. It is likely that she has a cough variant asthma and also I upper airway cough syndrome. I did provide with peak flow ended instructed how to use it to see if she can use the peak flow as a way to monitor her airway resistance and see if she gets any benefit from a rescue inhaler. 08/16/2023 the patient is here for a pulmonary follow-up visit. The patient had presented back in March with symptoms of cough. At that point she was started on inhaler therapy. She has significant asthma history significant wheezing. The patient may be a great candidate for biologics. However she has not had her blood work done as of yet. Now her symptoms have been getting worse. She is having increased cough she has chest tightness and wheezing. Moderate severity. She could not go to work because her symptoms were so significant and this is something that she does not do typically. The patient denies any fevers or chills and denies any sick contacts. We did review her last chest x-ray that she had back in demonstrating some slight opacity. Will have a repeat that x-ray and also the blood work to assess her eosinophilia. The patient will be maximize her respiratory therapy. She does have significant wheezing therefore will give a nebulizer treatment right now as well. 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 But my suspicion is most likely allergic with the change in seasons. If the patient continues to be symptomatic will consider starting biologic therapy. 09/27/2023 the patient is here for a pulmonary follow-up visit. The patient is feeling a lot better. She is having no symptoms at this time. She did take the prednisone for few days and also started the Symbicort. She was able to wean off. Now she can uses Symbicort as needed. We did review her chest x-ray demonstrates some hazy opacities suggesting some degree of pneumonitis. Although when I looked at it was not very impressed. In addition to that the patient did have blood work including allergy testing demonstrating significant allergies to mold. The patient does have a exposure to mold in the basement and also potentially in work. Areas. The patient will try to minimize exposure. They are running at the humidifier which would be helpful as well. The patient is a candidate for biologic therapies including the eosinophil count and IgE levels in her allergies. Although at this point she is doing better trying to avoid her allergens. And she is wearing a mask. All these things helpful. Therefore, she will continue using the Symbicort and will hold off on any biologic therapies at this time. Will follow up in sometimes 6-8 months. The patient has any issues prior to that she will call the office for an earlier assessment. 12/06/2023 the patient is here for sick visit. Apparently she has been sick for more than 2 weeks. She has had significant chest tightness and cough. She has had difficulty sleeping because of significant coughing. She has been using her inhaler with partial response. She did try to call the office but she could not get an appointment. Not sure if she tried going elsewhere. In the meantime she continued to get worse. Today she has significant chest tightness and cough. On examination she has significant wheezing. We did provide her to DuoNe dottie to see if she responded and she did do a lot better. Therefore we did provide her with a nebulizer for her to take home with her. In the meantime will treat her home with prednisone and doxycycline for likely a postviral bacterial infection. Sounds like he probably had RSV or a viral syndrome the likely precipitated her asthma symptoms. She does have significant sick contacts at work. The patient will start taking the therapy if she has no better she will call the office for further management. 04/19/2024 the patient is here for a pulmonary follow-up visit. She has had a hard time with the breathing. She is coughing more and has more chest tightness and wheezing. She has been using her nebulizer. The patient did just complete a course of prednisone antibiotics. We did review her blood work. She does have significant eosinophilia. She also has an elevated IgE consistent with eosinophilic asthma. The patient will require additional prednisone since she is having significant wheezing and coughing. Although with her significant eosinophilia she will benefit from Fasenra. Therefore, will start the process of starting her Fasenra. She will need another course of prednisone in the meantime. 06/21/2024 the patient is here for a pulmonary follow-up visit. She is doing better. She did have take the prednisone which is reassuring. She also did not have state the antibiotics. She continues any inhalers. Not the weather improve after the rain the allergens have been decreasing and her breathing improves. She however still has wheezing on examination. She does have severe persistent uncontrolled asthma. Were still waiting for the approval for the Fasenra which I believe will be excellent addition to her respiratory regimen and improve her quality of life. Hopefully we can get that in soon. In the meantime she is going to continue taking her respiratory therapy and if her symptoms worsen she is going to go ahead and take the prednisone. 10/04/2025 the patient is here for pulmonary follow-up visit. The patient overall is doing okay. I have though a few months ago she has a hard time with the breathing and she called because she was having a significant cough. The patient was not able to be seen. She has struggled but then she did get better on her own. She did not use any prednisone only prescription medication. She does have mold allergies. Seems like her symptoms do worsen in her job makes it difficult if she is coughing and try to help client. She is been on Symbicort. We did talk about increasing her or escalating her inhaler to Breztri. But at this point will go ahead and start her on Singulair 1st since her breathing is okay right now. Singulair will help her with the significant allergies. We had tried getting her Fasenra but for some reason shortness collins it was too expensive so therefore the patient held off on starting the medication. So therefore she will start the Singulair and consider switching over to Breztri for continues her symptoms. The patient also knows to avoid mold. She will get a flu shot today and she will follow-up in 6 months if she has any issues she can always call for an earlier assessment of recommendations. [facility] Medical History Allergies Fracture of phalanx of ring finger Asthma Chronic cough Surgical History Hx of mastectomy Family History Father Hypertension Heart attack, Onset Age: 55 Mother No problems noted. 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 Cognitive needs: No Hearing needs: No Vision needs: Yes Review of Systems Const Reports difficulty sleeping and Denies fever(s) Eyes Denies blurry vision ENT Denies nasal congestion Card Denies chest pain and Denies dyspnea on exertion Resp Denies chest congestion, Reports cough, Denies hemoptysis, Denies dyspnea on exertion and Reports wheezing GI Reports dyspepsia Musc Reports no additional complaints Skin/Breast Denies rash Neuro Reports no additional complaints Steve/Lymph Denies lymphadenopathy Aller/Immun Reports wheezing Physical Exam Vital Signs: Last Vital Signs Pulse 74 10/04/25 13:47 BP 110/78 10/04/25 13:47 Pulse Ox 100 10/04/25 13:47 Oxygen Delivery Method Room Air 10/04/25 13:47 BMI result Body Mass Index 27.6 Const General: comfortable HEENT Head: Yes normocephalic Neck Neck: Yes supple Chest Chest palpation & inspection: normal inspection of the chest Resp Effort & Inspection: normal respiratory effort Auscultation: no wheezes and diminished lung sounds Cardio Rate: regular rate Rhythm: regular rhythm Heart sounds: S1 normal heart sound present and S2 normal heart sound present GI Palpation (GI): Soft to palpation Skin General skin exam: no rashes or lesions noted Extrem General: Yes no clubbing, cyanosis or edema Office Procedures Flu Questionnaire Does the patient have a severe egg allergy?: No Does the patient have severe life threatening allergies?: No Does the patient have a fever or illness today?: No Has the patient ever had Guillain-Mililani Syndrome?: No Has the patient ever had any past reaction to a flu shot?: No Immunizations Fluarix [id number] (PF) 45 mcg (15 mcg x 3)/0.5 mL IM syringe Performing Provider: Naren Quiñones MD Performing Location: [facility] [place] Pulmonology Services Administered by: Kailee Otero LPN on 10/04/25 14:23 Dose Route Admin Location Dispensed Lot Number Expiration Date NDC Appliance Counselor 0.5 mL IM Left Deltoid 0.5 mL [id number] 05/28/26 87521-544-39 [employer] VIS Given Date VIS Provided VIS Publication Date 10/04/25 Single Vaccine 24 Eligibility Eligibility Date Funding Source Not [facility] Eligible 10/04/25 Private Assessment & Plan Assessment & Plan (1) Asthma: Comment: Eosinophilic asthma Code(s): J45.909 - Unspecified asthma, uncomplicated Category: Medical Qualifiers: Asthma complication type: with acute exacerbation Asthma persistence: persistent Asthma severity: severe Qualified Code(s): J45.51 - Severe persistent asthma with (acute) exacerbation (2) Chronic cough: Code(s): R05.3 - Chronic cough Category: Medical Plan did not start Fasenra continue Symbicort consider Breztri TANESHA as needed Start Singulair pm Mold avoidence Tessalon pearls as needed F/U 6 months Orders: Orders Influenza [id number] Immunization Today Z23 - Encounter for immunization XR chest 2V Today J45.51 - Severe persistent asthma with (acute) exacerbation Medications: New montelukast (Singulair) 10 mg PO BEDTIME 30 tabs 11RF 30 days J45.909 - Unspecified asthma, uncomplicated Refilled benzonatate 200 mg PO BID PRN 60 caps 3RF cough 30 days Coding Level of Care Code Est Pt Level 4 (80159) Diagnoses Severe persistent asthma with acute exacerbation J45.51 Asthma complication type: with acute exacerbation Asthma persistence: persistent Asthma severity: severe Chronic cough R05.3 Time Spent (min) 16
--- OUTSIDE RECORDS SUMMARY | 2025-10-04 16:44 | XMS_ITS | Clinical Summary ---
Author Organization [facility] Address [address] [place] [id number] Phone Care Team Providers Care Process Helper Name Role Phone Pcp, Unknown Primary Care [...] topic Medical Devices Not on file Insurance [facility] POS EPO [facility] POS [place] [address] [place] [id number] POS EPO [facility] POS EPO [employer] O POS EPO Care Teams Process Helper Relationship Specialty Start Date End Date Pcp, Unknown PCP - General 03/06/24 Additional Source Comments The information contained in this document represents components of the legal health record. It is not the complete legal health record.[facility]
--- OUTSIDE RECORDS SUMMARY | 2025-10-04 16:44 | XMS_ITS | Clinical Summary ---
Author Organization [facility] Address [address] [place] [address] Phone Care Team Providers Care Cosmetic Sales Assistant Name Role Phone Renetta Groves MD Primary Care Provider Allergies No known active allergies Medications tretinoin (RETIN-A) 0.025 % cream Apply pea size amount to dry skin at bedtime and then cover with a noncomedogenic moisturizer 08/07/20 13 2024 Discontinued tamoxifen citrate (TAMOXIFEN ORAL) Take 1 tablet by mouth. 2024 Discontinued Active Problems Problem Noted Date Diagnosed Date Breast cancer, right breast (CMS/HCC V24, CMS/HC C V28) 11/08/2024 Overview (11/08/2024): diagnosed in Sep 2011, s/p right mastectomy, follows with Oncologist Dr Raheem simmons, on Tamoxifen, negative for genetic susceptibilty as per patient, on tamoxifen, completed Radiation therapy Xanthelasma 08/29/2012 Encounters Date Type Department Care Team Description 09/11/2025 Telephone [facility] Hematology Oncology [address] [place] [phone] Meenu Chambers [place] 09/06/2025 9:30 AM EDT Office Visit [facility] Hematology Oncology [address] [place] [address] Raheem Simmons MD Malignant neoplasm of overlapping sites of right breast in female, estrogen receptor positive (CMS/HCC V24, CMS/HCC V28) (Primary Dx) from Last 3 Months Social History Tobacco Use Types Packs/Day Years Used Date Smoking Tobacco: Never Assessed Comments Unknown Sex and Gender Information Value Date Recorded Sex Assigned at Not on file Legal Sex Female 10:49 AM EST Gender Identity Not on file Sexual Orientation Not on file Obstetrics History Last Filed Vital Signs Vital Sign Reading Time Taken Comments Blood Pressure 129/52 09/06/2025 9:42 AM EDT Pulse 68 09/06/2025 9:42 AM EDT Temperature 36.1 C (97 F) 09/06/2025 9:42 AM EDT Respiratory Rate - - Oxygen Saturation 98% 09/06/2025 9:42 AM EDT Inhaled Oxygen Concentration - - Weight 62.6 kg (138 lb) 09/06/2025 9:42 AM EDT Height 151.4 cm (4' 11.6 ) 11/04/2022 9:23 AM ES T Body Mass Index 27.31 11/04/2022 9:23 AM EST Plan of Treatment Upcoming Encounters Date Type Department Care Team (Late st Contact Info) Description 03/07/2026 9:15 AM EDT Office Visit [facility] Hematology Oncology [address] [place] [address] Raheem Simmons MD [address] [place] [address] Health Maintenance Due Date Last Done Comments Breast Cancer Screening 1965 Colorectal Cancer Screening: Colonoscopy 1965 Pneumococcal Vaccine: 50+ Years (1 of 2 - PCV) 1983 Zoster Vaccines (1 of 2) 1983 Cervical Cancer Screening: Pap Smear 1985 HIV Screening 11/06/2022 Hepatitis C Screening 11/06/2022 [...] complete this topic Insurance [employer] Care Teams Cosmetic Sales Assistant Relationship Specialty Start Date End Date Renetta Groves MD [address] [facility] [place] [phone] PCP - General 08/28/24
--- OUTSIDE RECORDS SUMMARY | 2025-10-04 16:44 | XMS_ITS | Clinical Summary ---
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
== END 2025-10-04 14:20 | disposition home or self-care (01) ==
LOC: HO.HPS 13:44
PROVIDERS: PCP Internal Medicine; Visit Provider Hospitalist
DX: J45.51 Severe persistent asthma with (acute) exacerbation (principal); R05.3 Chronic cough; Z23 Encounter for immunization
CPT/HCPCS: 99214

== ENCOUNTER → 2025-10-04 13:43 | Outpatient (BNVA) | payer OTHER, SELFPAY | PROVIDERS: PCP Internal Medicine; Visit Provider Hospitalist | DX: Z23 Encounter for immunization (principal) | CPT/HCPCS: 90471; 90656 ==